=== PATIENT | female | born 1965 | race African-American/Black ===

== ENCOUNTER 2020-05-02 07:16 | Outpatient (REF) | payer OTHER, SELFPAY ==
[2020-05-02 08:12] LABS: COVID-19 Test Negative (Negative)
== END 2020-05-02 07:17 | disposition home or self-care (01) ==
LOC: HO.LAB 07:16
PROVIDERS: Visit Provider Internal Medicine
DX: Z20.828 Contact with and (suspected) exposure to other viral communicable diseases (principal)
CPT/HCPCS: 87635

== ENCOUNTER 2020-11-13 08:04 | Emergency (ER) | payer OTHER, SELFPAY ==
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
[2020-11-13 08:07] VITALS: BP 144/91; PULSE 96; RESP 18; TEMP 36.1; O2SAT 99; BMI 27.3
[2020-11-13] MEDS: Ibuprofen 800 MG TABLET PO (09:19)
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
[2020-11-13 09:31] VITALS: BP 140/97; PULSE 84; RESP 16; O2SAT 98
[2020-11-13 09:40] VITALS: BP 140/97; PULSE 90; RESP 16
== END 2020-11-13 09:55 | disposition home or self-care (01) ==
PROVIDERS: Emergency Provider Emergency Medicine; PCP Internal Medicine
DX: S33.5XXA Sprain of ligaments of lumbar spine, initial encounter (principal); V43.52XA Car driver injured in collision with other type car in traffic accident, initial encounter; Y93.89 Activity, other specified; Y92.414 Local residential or business street as the place of occurrence of the external cause; Y99.9 Unspecified external cause status
CPT/HCPCS: 72100; 99283; 99284

== ENCOUNTER 2021-05-10 10:03 | Outpatient (REF) | payer OTHER, SELFPAY ==
[2021-05-10 12:14] LABS: Influenza A PCR NEGATIVE (Negative); Influenza B PCR NEGATIVE (Negative); Resp Syncy Virus RNA Qual PCR NEGATIVE (Negative); SARS COV2 PCR INHOUSE NEGATIVE (Negative)
== END 2021-05-10 10:04 | disposition home or self-care (01) ==
LOC: HO.LAB 10:03
PROVIDERS: PCP Internal Medicine; Visit Provider Internal Medicine
DX: Z20.822 Contact with and (suspected) exposure to COVID-19 (principal)
CPT/HCPCS: 0241U; 36415

== ENCOUNTER 2021-06-16 07:25 | Outpatient (REF) | payer OTHER, SELFPAY ==
--- NOTE | ~2021-06-16 | XR_ITS ---
EXAMINATION: XR PELVIS XR SACROILIAC JOINTS CLINICAL INFORMATION: Pain of both sacroiliac joints. COMPARISON: None TECHNIQUE: Frontal view of the pelvis. 3 views of the sacroiliac joints. FINDINGS: No fracture or dislocation. The hips are well aligned. Joint spaces are maintained. The sacroiliac joints are symmetric. No abnormal sclerosis. No fusion. The pubic symphysis is well aligned. The pelvic rim is intact. Phleboliths in the pelvis noted. XR/XR sacroiliac joint min 3V IMPRESSION: Unremarkable appearance of the pelvis. The sacroiliac joints are normal in appearance.
--- NOTE | ~2021-06-16 | XR_ITS ---
EXAMINATION: XR PELVIS XR SACROILIAC JOINTS CLINICAL INFORMATION: Pain of both sacroiliac joints. COMPARISON: None TECHNIQUE: Frontal view of the pelvis. 3 views of the sacroiliac joints. FINDINGS: No fracture or dislocation. The hips are well aligned. Joint spaces are maintained. The sacroiliac joints are symmetric. No abnormal sclerosis. No fusion. The pubic symphysis is well aligned. The pelvic rim is intact. Phleboliths in the pelvis noted. XR/XR pelvis 1-2V IMPRESSION: Unremarkable appearance of the pelvis. The sacroiliac joints are normal in appearance.
== END 2021-06-16 07:26 | disposition home or self-care (01) ==
LOC: HO.XRAY 07:25
PROVIDERS: PCP Internal Medicine; Visit Provider Physician Assistant Surgical
DX: M53.3 Sacrococcygeal disorders, not elsewhere classified (principal)
CPT/HCPCS: 72170; 72202

== ENCOUNTER 2021-07-04 07:44 | Outpatient (REF) | payer OTHER, SELFPAY ==
[2021-07-04 08:40] LABS: Influenza A PCR NEGATIVE (Negative); Influenza B PCR NEGATIVE (Negative); Resp Syncy Virus RNA Qual PCR POSITIVE (Negative); SARS COV2 PCR INHOUSE NEGATIVE (Negative)
== END 2021-07-04 07:45 | disposition home or self-care (01) ==
LOC: HO.LAB 07:44
PROVIDERS: PCP Internal Medicine; Visit Provider Internal Medicine
DX: Z20.822 Contact with and (suspected) exposure to COVID-19 (principal)
CPT/HCPCS: 0241U

== ENCOUNTER 2021-12-27 09:47 | Outpatient (REF) | payer OTHER, SELFPAY ==
[2021-12-27 10:05] LABS: MANUAL DIFF FLAG NO
[2021-12-27 10:46] LABS: Basophils Percent Auto 0.5 % (0-2); Eosinophils Absolute Auto 0.1 X10*3/uL (0.0-0.4); Eosinophils Percent Auto 1.6 % (0-4); Hematocrit 36.6 % (37.0-47.0); Hemoglobin 12.5 g/dl (12.0-16.0); Imm Gran Abs Auto 0.02 X10*3/uL (0.00-0.03); Imm Gran Pct Auto 0.5 % (0.0-0.4); Lymphocytes Absolute Auto 2.2 X10*3/uL (1.2-4.9); Lymphocytes Percent Auto 51.4 % (20-40); Mean Corpuscular HGB Conc 34.2 g/dl (31.0-35.0); Mean Corpuscular Hemoglobin 26.7 pg (27.0-33.0); Mean Corpuscular Volume 78.2 fL (80.0-98.0); Mean Platelet Volume 10.3 fL (9.4-12.3); Monocytes Absolute Auto 0.3 X10*3/uL (0.1-1.2); Monocytes Percent Auto 6.5 % (2-11); Neutrophils Absolute Auto 1.7 x10*3/uL (2.0-8.3); Neutrophils Percent Auto 39.5 % (45-73); Platelet Count 400 X10*3/uL (160-400); Red Blood Count 4.68 X10*6/uL (4.20-5.50); Red Cell Distribution Width 15.3 % (11.0-16.0); White Blood Count 4.3 X10*3/uL (4.8-10.8)
[2021-12-27 11:10] LABS: Estimated Average Glucose 108 mg/dL; Hemoglobin A1c % 5.4 %
[2021-12-27 11:16] LABS: Alanine Aminotransferase 27 U/L (0-31); Alkaline Phosphatase 70 U/L (39-117); Anion Gap 10 (12-20); Aspartate Amino Transferase 24 U/L (5-31); Bilirubin Total 0.4 mg/dL (0.0-1.0); Blood Urea Nitrogen 9 mg/dL (9-16); Calcium 8.9 mg/dL (8.4-10.2); Carbon Dioxide 27 mmol/L (22-29); Chloride 107 mmol/L (96-108); Cholesterol 208 mg/dL; Estimated Glomerular Filt Rate > 60; Glucose Random 87 mg/dL (60-115); HDL Cholesterol 54 mg/dL; LDL Cholesterol Calculated 133 mg/dl; Potassium 4.7 mmol/L (3.3-5.1); Sodium 139 mmol/L (135-145); Total Protein 7.4 g/dL (6.5-8.0); Triglycerides 105 mg/dL
[2021-12-27 11:41] LABS: Free T4 (Free Thyroxine) 0.75 ng/dL (0.71-1.85); Thyroid Stimulating Hormone 0.68 uIU/mL (0.32-4.0)
[2021-12-29 06:06] LABS: Vitamin B12 410 pg/mL (200-900)
== END 2021-12-27 09:48 | disposition home or self-care (01) ==
LOC: HO.LAB 09:47
PROVIDERS: PCP Internal Medicine; Visit Provider Internal Medicine
DX: Z00.00 Encounter for general adult medical examination without abnormal findings (principal); E55.9 Vitamin D deficiency, unspecified; F32.9 Major depressive disorder, single episode, unspecified
CPT/HCPCS: 36415; 80053; 80061; 82607; 83036; 84439; 84443; 85025

== ENCOUNTER 2022-05-05 11:33 | Outpatient (REF) | payer OTHER, SELFPAY ==
[2022-05-05 12:06] LABS: COVID-19 Test Negative (Negative); IDNOW Serial# 55D5AD1C
== END 2022-05-05 11:34 | disposition home or self-care (01) ==
LOC: HO.LAB 11:33
PROVIDERS: PCP Internal Medicine; Visit Provider Internal Medicine
DX: Z20.822 Contact with and (suspected) exposure to COVID-19 (principal)
CPT/HCPCS: 87635

== ENCOUNTER 2022-05-21 11:12 | Outpatient (REF) | payer OTHER, SELFPAY ==
--- NOTE | ~2022-05-21 | MM_ITS ---
EXAMINATION: MM SCREENING DIGITAL BREAST TOMOSYNTHESIS, BILATERAL CLINICAL INFORMATION: Screening. Asymptomatic. COMPARISON: Mammography: November 24, 2018 and studies dating back to October 23, 2014 TECHNIQUE: Digital breast tomosynthesis is performed in both the craniocaudal and mediolateral oblique views along with computer-aided detection (CAD). Synthesized 2D images are generated from the tomosynthesis. FINDINGS: The breasts are extremely dense, which lowers the sensitivity of mammography (ACR BI-RADS breast composition Category d). There are no significant masses, abnormal calcifications, or other abnormalities. MM/MM tomosynthesis screening BI IMPRESSION: No significant changes from prior exam. ASSESSMENT: BI-RADS 1: Negative RECOMMENDATION: Routine annual mammography screening. This patient's information was entered into a reminder system with a target due date for their next mammogram.
== END 2022-05-21 11:13 | disposition home or self-care (01) ==
LOC: HO.MAMMO 11:12
PROVIDERS: PCP Internal Medicine; Visit Provider Internal Medicine
DX: Z12.31 Encounter for screening mammogram for malignant neoplasm of breast (principal)
CPT/HCPCS: 77063; 77067

== ENCOUNTER 2022-06-16 12:54 | Outpatient (REF) | payer OTHER, SELFPAY ==
[2022-06-16 14:59] LABS: Influenza A PCR POSITIVE (Negative); Influenza B PCR NEGATIVE (Negative); Resp Syncy Virus RNA Qual PCR NEGATIVE (Negative); SARS COV2 PCR INHOUSE NEGATIVE (Negative)
== END 2022-06-16 12:55 | disposition home or self-care (01) ==
LOC: HO.LAB 12:54
PROVIDERS: PCP Internal Medicine; Visit Provider Internal Medicine
DX: Z20.822 Contact with and (suspected) exposure to COVID-19 (principal)
CPT/HCPCS: 0241U

== ENCOUNTER 2022-07-10 08:10 | Outpatient (REF) | payer OTHER, SELFPAY ==
[2022-07-10 09:01] LABS: Influenza A PCR NEGATIVE (Negative); Influenza B PCR NEGATIVE (Negative); Resp Syncy Virus RNA Qual PCR NEGATIVE (Negative); SARS COV2 PCR INHOUSE NEGATIVE (Negative)
== END 2022-07-10 08:11 | disposition home or self-care (01) ==
LOC: HO.LAB 08:10
PROVIDERS: PCP Internal Medicine; Visit Provider Internal Medicine
DX: Z20.822 Contact with and (suspected) exposure to COVID-19 (principal)
CPT/HCPCS: 0241U

== ENCOUNTER 2022-08-04 15:54 | Outpatient (REF) | payer OTHER, SELFPAY ==
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
== END 2022-08-04 15:55 | disposition home or self-care (01) ==
LOC: HO.HMGCX 15:54
PROVIDERS: PCP Internal Medicine; Visit Provider Internal Medicine
DX: S90.32XA Contusion of left foot, initial encounter (principal)
CPT/HCPCS: 73630

== ENCOUNTER 2022-08-29 09:56 | Outpatient (REF) | payer OTHER, SELFPAY ==
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
[2022-08-29 11:48] LABS: Hematocrit 41.6 % (37.0-47.0); Hemoglobin 13.8 g/dl (12.0-16.0); Mean Corpuscular HGB Conc 33.2 g/dl (31.0-35.0); Mean Corpuscular Hemoglobin 26.2 pg (27.0-33.0); Mean Corpuscular Volume 78.9 fL (80.0-98.0); Mean Platelet Volume 10.7 fL (9.4-12.3); Platelet Count 353 X10*3/uL (160-400); Red Blood Count 5.27 X10*6/uL (4.20-5.50)
[2022-08-29 12:08] LABS: Anion Gap 13 (12-20); Blood Urea Nitrogen 9 mg/dL (9-16); C Reactive Protein 0.11 mg/dL (< or = 0.50); Calcium 9.4 mg/dL (8.4-10.2); Carbon Dioxide 27 mmol/L (22-29); Chloride 111 mmol/L (96-108); Estimated Glomerular Filt Rate > 60; Glucose Random 99 mg/dL (60-115); Potassium 4.8 mmol/L (3.3-5.1); Sodium 146 mmol/L (135-145); Uric Acid 5.4 mg/dL (2.4-5.7)
== END 2022-08-29 09:57 | disposition home or self-care (01) ==
LOC: HO.HMGCX 09:56
PROVIDERS: PCP Internal Medicine; Visit Provider Internal Medicine
DX: S90.32XA Contusion of left foot, initial encounter (principal); S93.402A Sprain of unspecified ligament of left ankle, initial encounter
CPT/HCPCS: 36415; 73600; 73630; 80048; 84550; 85027; 86140

== ENCOUNTER 2023-02-20 08:22 | Outpatient (REF) | payer OTHER, SELFPAY ==
[2023-02-20 08:40] LABS: MANUAL DIFF FLAG NO
[2023-02-20 09:02] LABS: Basophils Percent Auto 0.8 % (0-2); Eosinophils Percent Auto 1.1 % (0-4); Hematocrit 41.4 % (37.0-47.0); Hemoglobin 14.5 g/dl (12.0-16.0); Imm Gran Abs Auto 0.01 X10*3/uL (0.00-0.03); Imm Gran Pct Auto 0.3 % (0.0-0.4); Lymphocytes Absolute Auto 1.8 X10*3/uL (1.2-4.9); Lymphocytes Percent Auto 49.6 % (20-40); Mean Corpuscular Hemoglobin 27.5 pg (27.0-33.0); Mean Corpuscular Volume 78.4 fL (80.0-98.0); Mean Platelet Volume 10.4 fL (9.4-12.3); Monocytes Absolute Auto 0.2 X10*3/uL (0.1-1.2); Monocytes Percent Auto 4.9 % (2-11); Neutrophils Absolute Auto 1.6 x10*3/uL (2.0-8.3); Neutrophils Percent Auto 43.3 % (45-73); Platelet Count 363 X10*3/uL (160-400); Red Blood Count 5.28 X10*6/uL (4.20-5.50); Red Cell Distribution Width 15.2 % (11.0-16.0); White Blood Count 3.7 X10*3/uL (4.8-10.8)
[2023-02-20 09:12] LABS: Estimated Average Glucose 103 mg/dL; Hemoglobin A1c % 5.2 %
[2023-02-20 09:30] LABS: Alanine Aminotransferase 24 U/L (0-31); Albumin Level 4.2 g/dL (3.5-5.0); Alkaline Phosphatase 82 U/L (39-117); Anion Gap 11 (12-20); Aspartate Amino Transferase 24 U/L (5-31); Bilirubin Total 0.4 mg/dL (0.0-1.0); Blood Urea Nitrogen 9 mg/dL (9-16); Calcium 9.3 mg/dL (8.4-10.2); Carbon Dioxide 28 mmol/L (22-29); Chloride 108 mmol/L (96-108); Cholesterol 180 mg/dL; Estimated Glomerular Filt Rate > 60; Glucose Random 85 mg/dL (60-115); HDL Cholesterol 55 mg/dL; LDL Cholesterol Calculated 108 mg/dl; Potassium 4.6 mmol/L (3.3-5.1); Sodium 142 mmol/L (135-145); Total Protein 7.7 g/dL (6.5-8.0); Triglycerides 87 mg/dL
[2023-02-20 09:38] LABS: TSH reflex Free T4 0.91 uIU/mL (0.32-4.0); Thyroid Stimulating Hormone 0.91 uIU/mL (0.32-4.0)
[2023-02-20 09:44] LABS: Vitamin B12 424 pg/mL (200-900)
== END 2023-02-20 08:23 | disposition home or self-care (01) ==
LOC: HO.LAB 08:22
PROVIDERS: PCP Internal Medicine; Visit Provider Internal Medicine
DX: Z00.00 Encounter for general adult medical examination without abnormal findings (principal); E66.9 Obesity, unspecified; E55.9 Vitamin D deficiency, unspecified
CPT/HCPCS: 36415; 80053; 80061; 82607; 83036; 84443; 85025

== ENCOUNTER 2023-03-06 17:57 | Emergency (ER) | payer OTHER, SELFPAY ==
[2023-03-06 18:04] VITALS: BP 157/104; PULSE 106; RESP 18; TEMP 37.2; O2SAT 97; BMI 30.5
[2023-03-06 18:20] LABS: MANUAL DIFF FLAG NO
[2023-03-06] MEDS: ondansetron HCL 4 MG/2 ML VIAL IVPUSH (18:25)
[2023-03-06] MEDS: 0.9 % Sodium Chloride 1,000 ML 999 ML IV (18:25)
[2023-03-06 18:26] LABS: Glucose, Whole Blood 74 mg/dL (60-115)
[2023-03-06 18:26] LABS: Basophils Percent Auto 0.3 % (0-2); Hematocrit 42.6 % (37.0-47.0); Hemoglobin 14.8 g/dl (12.0-16.0); Imm Gran Abs Auto 0.02 X10*3/uL (0.00-0.03); Imm Gran Pct Auto 0.3 % (0.0-0.4); Lymphocytes Absolute Auto 1.3 X10*3/uL (1.2-4.9); Lymphocytes Percent Auto 19.6 % (20-40); Mean Corpuscular HGB Conc 34.7 g/dl (31.0-35.0); Mean Corpuscular Hemoglobin 27.1 pg (27.0-33.0); Mean Corpuscular Volume 77.9 fL (80.0-98.0); Mean Platelet Volume 9.7 fL (9.4-12.3); Monocytes Absolute Auto 0.2 X10*3/uL (0.1-1.2); Monocytes Percent Auto 3.2 % (2-11); Neutrophils Absolute Auto 5.2 x10*3/uL (2.0-8.3); Neutrophils Percent Auto 76.6 % (45-73); Platelet Count 352 X10*3/uL (160-400); Red Blood Count 5.47 X10*6/uL (4.20-5.50); Red Cell Distribution Width 15.1 % (11.0-16.0); White Blood Count 6.8 X10*3/uL (4.8-10.8)
[2023-03-06 18:30] VITALS: PULSE 98
--- NOTE | 2023-03-06 18:31 | PC.NURSE ---
pt a&ox3. respirations even and unlabored. pt reports nausea and vomiting since last night with no relief. pt reports no diarrhea at this time. pt denies chest pain. abdomen soft non tender but pt is reporting epigastric pain. hypoactive bowel sounds in all 4 quadrants. pt reports increasing her dose of wegovy from 0.5mg to 1.7mg on 02/25/2023 which the pt thinks may be causing the n/v.
[2023-03-06 18:37] LABS: COVID-19 Test Negative (Negative); IDNOW Serial# 08D9AD1C; IDNOW Serial# BCCEAD1C; Influenza A Negative (Negative); Influenza B2 Negative (Negative)
[2023-03-06 18:45] LABS: Alanine Aminotransferase 17 U/L (0-31); Albumin Level 4.4 g/dL (3.5-5.0); Alkaline Phosphatase 80 U/L (39-117); Anion Gap 11 (12-20); Aspartate Amino Transferase 22 U/L (5-31); Bilirubin Total 0.4 mg/dL (0.0-1.0); Blood Urea Nitrogen 9 mg/dL (9-16); Calcium 9.5 mg/dL (8.4-10.2); Carbon Dioxide 26 mmol/L (22-29); Chloride 107 mmol/L (96-108); Creatinine Clr Calc Pharmacy 92.1; Estimated Glomerular Filt Rate > 60; Glucose Random 71 mg/dL (60-115); Lipase 31 U/L (8-78); Sodium 140 mmol/L (135-145); Total Protein 8.3 g/dL (6.5-8.0)
--- NOTE | 2023-03-06 19:10 | ED_ITS ---
HPI - Nausea/Vomiting/Diarrhea General Chief complaint: Nausea/Vomiting/Diarrhea Stated complaint: Nausea/Vomiting Time Seen by Provider: 03/06/23 18:29 Source: patient Mode of arrival: ambulatory Limitations: no limitations History of Present Illness HPI Narrative: Patient comes to the emergency room complaining of nausea and vomiting since last night. Patient states that yesterday in the evening, she started a new dose of We Related Data Home Medications Medication Instructions Recorded Confirmed escitalopram oxalate 20 mg tablet 20 mg PO DAILY 08/04/22 pregabalin 75 mg capsule 150 mg PO BID 08/04/22 tramadol 50 mg tablet 50 mg PO DAILY PRN 08/04/22 cholecalciferol (vitamin D3) 125 125 mcg PO DAILY 08/29/22 mcg (5,000 unit) capsule Previous Rx's Medication Instructions Recorded acetaminophen 500 mg tablet 500 mg PO Q6H PRN pain or fever 11/13/20 (Tylenol Extra Strength) #20 tabs prednisone 20 mg tablet 60 mg PO DAILY #9 tabs 08/29/22 ondansetron 4 mg disintegrating 4 mg PO Q6H PRN nausea and 03/06/23 tablet vomiting #14 tabs Allergies Allergy/AdvReac Type Severity Reaction Status Date / Time No Known Allergies [NKA] Allergy Verified 03/06/23 18:08 Review of Systems Review of Systems: Constitutional : No Weight loss, No Fever, No Chills, No Night Sweats, No Fatigue, No Malaise ENT/Mouth : No Hearing loss, No Ear Pain, No Nasal Congestion, No Sinus Pain, No Hoarseness, No sore throat, No Rhinorrhea, No Swallowing Difficulty Eyes: No Eye Pain, No Swelling, No Redness, No Foreign Body, No Discharge, No Vision Changes Cardiovascular : No Chest Pain, No SOB, No Dyspnea on Exertion, No Orthopnea, No Edema, No Palpitations Respiratory : No Cough, No Sputum, No Wheezing, No Smoke Exposure, No Dyspnea Gastrointestinal : Complaining of nausea and vomiting, No Diarrhea, No Constipation, No abdominal Pain, No Hematochezia, No Melena Genitourinary : no irregular bleeding, No Dysuria, No Urinary Frequency, No Hematuria, No Urinary Incontinence, No Urgency, No Flank Pain, No Urinary Flow Changes, No Hesitancy Musculoskeletal : No joint pain, No Myalgias, No Joint Swelling Skin : No Skin Lesions, No rash Neuro : No Weakness, No Numbness, No Paresthesias, No Loss of Consciousness, No Dizziness, No Headache Psych : No Anxiety/Panic, No Depression, No SI/HI/AH/VH, No Social Issues, Heme/Lymph: No Bruising, No Bleeding,No Lymphadenopathy Endocrine : No Polyuria, No Polydipsia, No Temperature Intolerance [facility] Past Medical History Medical History Depression History of sinus problem Scoliosis Surgical History Previous back surgery Social History Social History Alcohol intake: never Smoked in Last 30 Days: No Use of substances other than those prescribed or required for medical reasons: No Advance Directives: No Advance Directives Information Provided: Yes Physical Exam Vital Signs: Vital Signs: Last Vital Signs Temp 98.7 F 03/06/23 20:00 Pulse 91 03/06/23 20:00 Resp 25 H 03/06/23 20:00 BP 145/94 H 03/06/23 20:00 Pulse Ox 98 03/06/23 20:00 O2 Del Method Room Air 03/06/23 20:00 BMI result Body Mass Index 30.5 Const: Other: Appearance: Alert. Oriented X3. No acute distress. Eyes: Pupils equal, round and reactive to light. ENT: Pharynx normal. Neck: Normal inspection. Neck supple. No lymph nodes noted. No crepitus CVS: Normal heart rate and rhythm. Pulses normal. Normal S1 and S2 Respiratory: No respiratory distress. Breath sounds normal. No Wheezing. No rales Abdomen: Soft mild discomfort to palpation in epigastric area, No rigidity. No distention. Skin: Skin warm and dry. Normal skin color. Normal skin turgor. Extremities: No lower extremity edema. No Lacerations. No Rash Neuro: Oriented X 3. No motor deficit. No sensory deficit. Moving all extremities. No slurred speech. CN 2 through 12 grossly intact Psych: calm, cooperative, normal affect Medications Administered Discontinued Medications Generic Name Dose Route Start Last Admin Trade Name Freq PRN Reason Stop Dose Admin Sodium Chloride 1,000 mls @ 999 mls/hr 03/06/23 18:15 03/06/23 19:26 Ns IV 03/06/23 19:15 Infused .Q1H1M ADITI Infusion Ondansetron HCl 4 mg 03/06/23 18:18 03/06/23 18:25 Ondansetron Hcl 4 Mg/2 Ml Vial IVPUSH 03/06/23 18:19 4 mg ONCE ONE Administration Medical Decision Making Medical Decision Making [facility] Narrative: -my interpretation of labs: White blood cell count normal, chemistry within n ormal limits, LFTs normal, lipase normal -is possible that patient may have had side effect to her new dose of Wegoby, versus eating food that may have gone the patient is sick. -patient was given IV fluids and Zofran. Patient was p.o. challenged patient feels better, abdominal pain improved patient will be going home shortly. Differential Diagnosis Differential Diagnoses: The differential diagnosis associated with the presentation includes (Medication side effect, gastroenteritis, peptic ulcer) Admission/Observation Consideration of admission/observation: Escalation of care including admission/observation considered (And patient came in, patient complaining of abdominal pain, nausea vomiting, possible dehydration, admission was considered) Lab Data [facility] Lab Attestation statement: I reviewed the patient's lab results. 03/06/23 18:16 03/06/23 18:16 Labs: Lab Results 03/06/23 03/06/23 03/06/23 Range/Units 18:16 18:16 18:16 WBC 6.8 (4.8-10.8) X10*3/uL RBC 5.47 (4.20-5.50) X10*6/uL Hgb 14.8 (12.0-16.0) g/dl Hct 42.6 (37.0-47.0) % MCV 77.9 L (80.0-98.0) fL MCH 27.1 (27.0-33.0) pg MCHC 34.7 (31.0-35.0) g/dl RDW 15.1 (11.0-16.0) % Plt Count 352 (160-400) X10*3/uL MPV 9.7 (9.4-12.3) fL Immature Gran % (Auto) 0.3 (0.0-0.4) % Neut % (Auto) 76.6 H (45-73) % Lymph % (Auto) 19.6 L (20-40) % Williamson % (Auto) 3.2 (2-11) % Eos % (Auto) 0.0 (0-4) % Baso % (Auto) 0.3 (0-2) % Lymph # (Auto) 1.3 (1.2-4.9) X10*3/uL Williamson # (Auto) 0.2 (0.1-1.2) X10*3/uL Eos # (Auto) 0.0 (0.0-0.4) X10*3/uL Baso # (Auto) 0.0 (0.0-0.2) X10*3/uL Abs Immat Gran (auto) 0.02 (0.00-0.03) X10*3/uL Absolute Neuts (auto) 5.2 (2.0-8.3) x10*3/uL Absolute Nucleated RBC 0.000 (0.0-0.012) X10*3/uL Nucleated RBC % (auto) 0.0 (0.0-0.2) /100WBC Sodium 140 (135-145) mmol/L Potassium 4.0 (3.3-5.1) mmol/L Chloride 107 (96-108) mmol/L Carbon Dioxide 26 (22-29) mmol/L Anion Gap 11 L (12-20) BUN 9 (9-16) mg/dL Creatinine 0.84 (0.5-1.4) mg/dL Estim Creat Clear Calc 92.1 Estimated GFR > 60 POC Glucose (60-115) mg/dL Random Glucose 71 (60-115) mg/dL Calcium 9.5 (8.4-10.2) mg/dL Total Bilirubin 0.4 (0.0-1.0) mg/dL AST 22 (5-31) U/L ALT 17 (0-31) U/L Alkaline Phosphatase 80 (39-117) U/L Total Protein 8.3 H (6.5-8.0) g/dL Albumin 4.4 (3.5-5.0) g/dL Lipase 31 (8-78) U/L COVID-19 (CELENA) (Negative) COVID-19 Clin Com Influenza Type A (TASHA) Negative (Negative) Influenza Type B (TASHA) Negative (Negative) Influenza A & B Note See Note 03/06/23 03/06/23 Range/Units 18:16 18:22 WBC (4.8-10.8) X10*3/uL RBC (4.20-5.50) X10*6/uL Hgb (12.0-16.0) g/dl Hct (37.0-47.0) % MCV (80.0-98.0) fL MCH (27.0-33.0) pg MCHC (31.0-35.0) g/dl RDW (11.0-16.0) % Plt Count (160-400) X10*3/uL MPV (9.4-12.3) fL Immature Gran % (Auto) (0.0-0.4) % Neut % (Auto) (45-73) % Lymph % (Auto) (20-40) % Williamson % (Auto) (2-11) % Eos % (Auto) (0-4) % Baso % (Auto) (0-2) % Lymph # (Auto) (1.2-4.9) X10*3/uL Williamson # (Auto) (0.1-1.2) X10*3/uL Eos # (Auto) (0.0-0.4) X10*3/uL Baso # (Auto) (0.0-0.2) X10*3/uL Abs Immat Gran (auto) (0.00-0.03) X10*3/uL Absolute Neuts (auto) (2.0-8.3) x10*3/uL Absolute Nucleated RBC (0.0-0.012) X10*3/uL Nucleated RBC % (auto) (0.0-0.2) /100WBC Sodium (135-145) mmol/L Potassium (3.3-5.1) mmol/L Chloride (96-108) mmol/L Carbon Dioxide (22-29) mmol/L Anion Gap (12-20) BUN (9-16) mg/dL Creatinine (0.5-1.4) mg/dL Estim Creat Clear Calc Estimated GFR POC Glucose 74 (60-115) mg/dL Random Glucose (60-115) mg/dL Calcium (8.4-10.2) mg/dL Total Bilirubin (0.0-1.0) mg/dL AST (5-31) U/L ALT (0-31) U/L Alkaline Phosphatase (39-117) U/L Total Protein (6.5-8.0) g/dL Albumin (3.5-5.0) g/dL Lipase (8-78) U/L COVID-19 (CELENA) Negative (Negative) COVID-19 Clin Com See Note Influenza Type A (TASHA) (Negative) Influenza Type B (TASHA) (Negative) Influenza A & B Note Tests considered The following testing was considered but not selected: I considered a CT scan of abdomen/pelvis. However, the physical exam of the abdomen was fairly benign. After IV hydration and fluids, patient started feeling much better. White blood cell count and chemistries do not show significant abnormality. Imaging not indicated at this time. Discharge Plan Discharge Clinical Impression: Nausea & vomiting Patient Disposition: Home, Self-Care Instructions: Acute Nausea and Vomiting (ED) Additional Instructions: Please follow-up with your primary care physician tomorrow. If you have any worsening or new symptoms, please return to the emergency room or call 911 Prescriptions: New ondansetron 4 mg tablet,disintegrating 4 mg PO Q6H PRN (Reason: nausea and vomiting) Qty: 14 0RF No Action acetaminophen [Tylenol Extra Strength] 500 mg tablet 500 mg PO Q6H PRN (Reason: pain or fever) Qty: 20 0RF tramadol 50 mg tablet 50 mg PO DAILY PRN pregabalin 75 mg capsule 150 mg PO BID escitalopram oxalate 20 mg tablet 20 mg PO DAILY cholecalciferol (vitamin D3) 125 mcg (5,000 unit) capsule 125 mcg PO DAILY prednisone 20 mg tablet 60 mg PO DAILY Qty: 9 0RF
[2023-03-06 20:00] VITALS: BP 145/94; PULSE 91; RESP 25; TEMP 37.1; O2SAT 98
--- NOTE | 2023-03-06 20:26 | PC.NURSE ---
Pt tolerated a cup of cranberry juice well, with no vomiting, states she is burpy
== END 2023-03-06 21:01 | disposition home or self-care (01) ==
PROVIDERS: Emergency Provider Emergency Medicine
DX: R11.2 Nausea with vomiting, unspecified (principal); Z20.822 Contact with and (suspected) exposure to COVID-19; R10.13 Epigastric pain; Z79.899 Other long term (current) drug therapy
CPT/HCPCS: 80053; 82947; 83690; 85025; 87502; 87635; 96361; 96374; 99284; J2405

== ENCOUNTER 2023-09-06 08:15 | Emergency (ER) | payer OTHER, SELFPAY ==
[2023-09-06 08:24] VITALS: BP 131/94; PULSE 109; RESP 20; TEMP 36.6; O2SAT 99; BMI 23.9
--- NOTE | 2023-09-06 08:31 | ED_ITS ---
HPI - Nausea/Vomiting/Diarrhea General Chief complaint: Abdominal Pain Stated complaint: Nausea, vomiting Time Seen by Provider: 09/06/23 08:25 Source: patient Mode of arrival: ambulatory Limitations: no limitations History of Present Illness HPI Narrative: 58 years old female presented with chief complaint of nausea and vomiting. She has been recently diagnosed with H pylori, she has history of abdominal pain since May. She denies any fever diarrhea MD elicited complaint: nausea and vomiting Onset (ago): hour(s) (6) Associated nausea: Yes Associated abdominal pain: No Location of pain: none Quality: cramping Exacerbating factors: none Relieving factors: none Related Data Home Medications Medication Instructions Recorded Confirmed escitalopram oxalate 20 mg tablet 20 mg PO DAILY 08/04/22 pregabalin 75 mg capsule 150 mg PO BID 08/04/22 tramadol 50 mg tablet 50 mg PO DAILY PRN 08/04/22 cholecalciferol (vitamin D3) 125 125 mcg PO DAILY 08/29/22 mcg (5,000 unit) capsule Previous Rx's Medication Instructions Recorded acetaminophen 500 mg tablet 500 mg PO Q6H PRN pain or fever 11/13/20 (Tylenol Extra Strength) #20 tabs prednisone 20 mg tablet 60 mg (3 x 20 mg) PO DAILY #9 tabs 08/29/22 ondansetron 4 mg disintegrating 4 mg PO Q6H PRN nausea and 03/06/23 tablet vomiting #14 tabs amoxicillin 875 mg-potassium 1 tab PO BID 10 days #20 tabs 05/31/23 clavulanate 125 mg tablet fluconazole 150 mg tablet 150 mg PO Q3D 2 doses #2 tabs 05/31/23 omeprazole 20 mg capsule,delayed 20 mg PO DAILY #30 caps 08/09/23 release metoclopramide HCl 10 mg tablet 10 mg PO Q6H PRN nausea and 09/06/23 (Reglan) vomiting #15 tabs Allergies Allergy/AdvReac Type Severity Reaction Status Date / Time ondansetron [From Zofran] Allergy Unknown Verified 09/06/23 08:31 Review of Systems 2 Constitutional: Constitutional: Reports no additional constitutional complaints ENT: Reports system reviewed and no additional complaints, except as documented Cardiovascular: Cardiovascular: Reports no additional cardiovascular complaints Respiratory: Respiratory: Reports no additional respiratory complaints Gastrointestinal: Gastrointestinal: Reports nausea PMFSH Past Medical History Attestation statement: The following information was validated with the patient. PMFSH Narrative: H Pylori,depression Medical History History of sinus problem Depression Scoliosis Surgical History Previous back surgery Social History Social History Alcohol intake: never Smoked in Last 30 Days: No Use of substances other than those prescribed or required for medical reasons: No Advance Directives: No Advance Directives Information Provided: No Patient : No Physical Exam 2 Vital Signs: Vital Signs: Last Vital Signs Temp 97.8 F 09/06/23 08:24 Pulse 109 H 09/06/23 08:24 Resp 18 09/06/23 08:52 BP 131/94 H 09/06/23 08:24 Pulse Ox 99 09/06/23 08:24 O2 Del Method Room Air 09/06/23 08:24 BMI result Body Mass Index 23.9 Const: General: cooperative Nutritional Appearance: well nourished O rientation/consciousness: patient oriented x3 HEENT: Head: Yes normal to inspection General nose exam: Normal external nose present Face and sinus: Yes normal facial exam Mouth: Normal oral and palatal mucosa present Throat: Yes posterior oropharynx normal Neck: Neck: Yes normal visual inspection Thyroid: Thyroid normal Chest: Chest palpation & inspection: normal inspection of the chest Resp: Effort & Inspection: normal respiratory effort Auscultation: clear to auscultation bilaterally Cardio: Jugular venous distension: no JVD Rate: regular rate Rhythm: r egular rhythm GI: Inspection: Yes normal to inspection Palpation (GI): Soft to palpation, not firm and nontender : General: Yes no CVA tenderness Back/Spine/Pelvis: Back: no CVA tenderness Skin: General skin exam: no rashes or lesions noted and elasticity normal L esions: no lesions Rashes: no rashes Neuro: General: patient oriented x3 Cranial nerves: Yes CN's II-XII intact bilaterally Course Reevaluation(s) Reevaluation #1: Feels better anticipate discharge labs are within normal Time: 10:30 Medications Administered Discontinued Medications Generic Name Dose Route Start Last Admin Trade Name Freq PRN Reason Stop Dose Admin Diphenhydramine HCl 12.5 mg 09/06/23 08:30 09/06/23 08:47 Diphenhydramine Hcl 50 Mg/Ml Vial IVPUSH 09/06/23 08:31 12.5 mg ONCE ONE Administration Sodium Chloride 1,000 mls @ 999 mls/hr 09/06/23 08:30 09/06/23 08:47 Ns IVCONT 09/06/23 09:30 999 mls/hr .Q1H1M ADITI Administration Metoclopramide HCl 10 mg 09/06/23 08:30 09/06/23 08:47 Metoclopramide Hcl 10 Mg/2 Ml Vial IVPUSH 09/06/23 08:31 10 mg ONCE ONE Administration Medical Decision Making Medical Decision Making MDM Narrative: Patient presented with nausea vomiting will obtain labs insert an IV administer fluid antiemetic Differential Diagnosis Differential Diagnoses: The differential diagnosis associated with the presentation includes Gastritis/gastroenteritis Admission/Observation Consideration of admission/observation: Escalation of care including admission/observation considered Lab Data [facility] Lab Attestation statement: I reviewed the patient's lab results. 09/06/23 08:40 09/06/23 08:40 Labs: Lab Results 09/06/23 Range/Units 08:40 WBC 3.2 L (4.8-10.8) X10*3/uL RBC 5.36 (4.20-5.50) X10*6/uL Hgb 14.9 (12.0-16.0) g/dl Hct 41.9 (37.0-47.0) % MCV 78.2 L (80.0-98.0) fL MCH 27.8 (27.0-33.0) pg MCHC 35.6 H (31.0-35.0) g/dl RDW 14.3 (11.0-16.0) % Plt Count 340 (160-400) X10*3/uL MPV 9.9 (9.4-12.3) fL Immature Gran % (Auto) 0.0 (0.0-0.4) % Neut % (Auto) 44.8 L (45-73) % Lymph % (Auto) 45.7 H (20-40) % Whitley % (Auto) 7.1 (2-11) % Eos % (Auto) 1.5 (0-4) % Baso % (Auto) 0.9 (0-2) % Lymph # (Auto) 1.5 (1.2-4.9) X10*3/uL Whitley # (Auto) 0.2 (0.1-1.2) X10*3/uL Eos # (Auto) 0.1 (0.0-0.4) X10*3/uL Baso # (Auto) 0.0 (0.0-0.2) X10*3/uL Abs Immat Gran (auto) 0.00 (0.00-0.03) X10*3/uL Absolute Neuts (auto) 1.5 L (2.0-8.3) x10*3/uL Absolute Nucleated RBC 0.000 (0.0-0.012) X10*3/uL Nucleated RBC % (auto) 0.0 (0.0-0.2) /100WBC Sodium 139 (135-145) mmol/L Potassium 4.0 (3.3-5.1) mmol/L Chloride 105 (96-108) mmol/L Carbon Dioxide 27 (22-29) mmol/L Anion Gap 11 L (12-20) BUN 7 L (9-16) mg/dL Creatinine 1.06 (0.5-1.4) mg/dL Estim Creat Clear Calc 61.9 Estimated GFR 54 Random Glucose 96 (60-115) mg/dL Calcium 9.7 (8.4-10.2) mg/dL Total Bilirubin 0.5 (0.0-1.0) mg/dL AST 19 (5-31) U/L ALT 16 (0-31) U/L Alkaline Phosphatase 60 (39-117) U/L Total Protein 7.8 (6.5-8.0) g/dL Albumin 4.3 (3.5-5.0) g/dL Lipase 40 (8-78) U/L Discharge Plan Discharge Clinical Impression: Vomiting Qualifiers: Vomiting type: unspecified Nausea presence: with nausea Qualified Code(s): R 11.2 - Nausea with vomiting, unspecified Patient Disposition: Home, Self-Care Instructions: Acute Nausea and Vomiting (ED) Additional Instructions: Follow-up with your primary care physician return if you worse Prescriptions: New metoclopramide HCl [Reglan] 10 mg tablet 10 mg PO Q6H PRN (Reason: nausea and vomiting) Qty: 15 0RF No Action acetaminophen [Tylenol Extra Strength] 500 mg tablet 500 mg PO Q6H PRN (Reason: pain or fever) Qty: 20 0RF ondansetron 4 mg tablet,disintegrating 4 mg PO Q6H PRN (Reason: nausea and vomiting) Qty: 14 0RF fluconazole 150 mg tablet 150 mg PO Q3D Qty: 2 0RF amoxicillin-pot clavulanate 875-125 mg tablet 1 tab PO BID 10 Days Qty: 20 0RF omeprazole 20 mg capsule,delayed release(DR/EC) 20 mg PO DAILY Qty: 30 1RF tramadol 50 mg tablet 50 mg PO DAILY PRN pregabalin 75 mg capsule 150 mg PO BID escitalopram oxalate 20 mg tablet 20 mg PO DAILY cholecalciferol (vitamin D3) 125 mcg (5,000 unit) capsule 125 mcg PO DAILY prednisone 20 mg tablet 60 mg PO DAILY Qty: 9 0RF Referrals: Tiera Stein MD [Primary Care Provider] - 1 day Stand Alone Forms: Work/School Release Interventions: ED Discharge Assessment Last Done: 09/06/23 10:39 Discharge Date/Time: 09/06/23 10:40
[2023-09-06 08:44] LABS: MANUAL DIFF FLAG NO
[2023-09-06] MEDS: 0.9 % Sodium Chloride 1,000 ML 999 ML IVCONT (08:47)
[2023-09-06] MEDS: Metoclopramide HCl 10 MG/2 ML VIAL IVPUSH (08:47)
[2023-09-06] MEDS: diphenhydrAMINE HCL 50 MG/ML VIAL 12.5 MG IVPUSH (08:47)
[2023-09-06 08:48] LABS: Basophils Percent Auto 0.9 % (0-2); Eosinophils Absolute Auto 0.1 X10*3/uL (0.0-0.4); Eosinophils Percent Auto 1.5 % (0-4); Hematocrit 41.9 % (37.0-47.0); Hemoglobin 14.9 g/dl (12.0-16.0); Lymphocytes Absolute Auto 1.5 X10*3/uL (1.2-4.9); Lymphocytes Percent Auto 45.7 % (20-40); Mean Corpuscular HGB Conc 35.6 g/dl (31.0-35.0); Mean Corpuscular Hemoglobin 27.8 pg (27.0-33.0); Mean Corpuscular Volume 78.2 fL (80.0-98.0); Mean Platelet Volume 9.9 fL (9.4-12.3); Monocytes Absolute Auto 0.2 X10*3/uL (0.1-1.2); Monocytes Percent Auto 7.1 % (2-11); Neutrophils Absolute Auto 1.5 x10*3/uL (2.0-8.3); Neutrophils Percent Auto 44.8 % (45-73); Platelet Count 340 X10*3/uL (160-400); Red Blood Count 5.36 X10*6/uL (4.20-5.50); Red Cell Distribution Width 14.3 % (11.0-16.0); White Blood Count 3.2 X10*3/uL (4.8-10.8)
[2023-09-06 08:52] VITALS: RESP 18
[2023-09-06 09:02] LABS: Alanine Aminotransferase 16 U/L (0-31); Albumin Level 4.3 g/dL (3.5-5.0); Alkaline Phosphatase 60 U/L (39-117); Anion Gap 11 (12-20); Aspartate Amino Transferase 19 U/L (5-31); Bilirubin Total 0.5 mg/dL (0.0-1.0); Blood Urea Nitrogen 7 mg/dL (9-16); Calcium 9.7 mg/dL (8.4-10.2); Carbon Dioxide 27 mmol/L (22-29); Chloride 105 mmol/L (96-108); Creatinine Clr Calc Pharmacy 61.9; Estimated Glomerular Filt Rate 54; Glucose Random 96 mg/dL (60-115); Lipase 40 U/L (8-78); Sodium 139 mmol/L (135-145); Total Protein 7.8 g/dL (6.5-8.0)
== END 2023-09-06 10:40 | disposition home or self-care (01) ==
PROVIDERS: Emergency Provider Emergency Medicine; PCP Internal Medicine
DX: R11.2 Nausea with vomiting, unspecified (principal); B96.81 Helicobacter pylori [H. pylori] as the cause of diseases classified elsewhere
CPT/HCPCS: 36415; 80053; 83690; 85025; 96374; 96375; 99284; J1200; J2765

== ENCOUNTER 2023-10-05 09:08 | Outpatient (REF) | payer OTHER, SELFPAY ==
[2023-10-05 09:32] LABS: IDNOW Serial# 08D9AD1C; Strep A Nucleic Acid Negative (Negative)
== END 2023-10-05 09:09 | disposition home or self-care (01) ==
LOC: HO.LAB 09:08
PROVIDERS: Visit Provider Physician Assistant
DX: J02.9 Acute pharyngitis, unspecified (principal)
CPT/HCPCS: 87651

== ENCOUNTER 2023-10-24 11:18 | Outpatient (REF) | payer OTHER, SELFPAY ==
[2023-10-26 08:46] LABS: HIV AB/AG Nonreactive (Nonreactive); HIV Num 1 0.05 S/CO (0.00-0.99)
== END 2023-10-24 11:19 | disposition home or self-care (01) ==
LOC: HO.LAB 11:18
PROVIDERS: PCP Internal Medicine; Visit Provider Nurse Practitioner Women's Health
DX: Z11.4 Encounter for screening for human immunodeficiency virus [HIV] (principal)
CPT/HCPCS: 36415; 87389

== ENCOUNTER 2023-11-09 09:11 | Outpatient (REF) | payer OTHER, SELFPAY | END 2023-11-09 09:12 | disposition home or self-care (01) | LOC: HO.MAMMO 09:11 | PROVIDERS: Absent Provider Nurse Practitioner Women's Health; PCP Internal Medicine; Visit Provider Internal Medicine | DX: Z12.31 Encounter for screening mammogram for malignant neoplasm of breast (principal) | CPT/HCPCS: 77063; 77067 ==

== ENCOUNTER → 2023-11-09 09:15 | Outpatient (BNV) | payer OTHER, SELFPAY | PROVIDERS: Absent Provider Nurse Practitioner Women's Health; PCP Internal Medicine; Visit Provider Radiology Diagnostic Radiology | DX: Z12.31 Encounter for screening mammogram for malignant neoplasm of breast (principal) | CPT/HCPCS: 77063; 77067 ==

== ENCOUNTER 2024-03-21 11:00 | Outpatient (RCR) | payer OTHER, SELFPAY | END 2024-03-21 11:57 | disposition home or self-care (01) | LOC: HO.PTCHIC 11:00 | PROVIDERS: PCP Internal Medicine; Visit Provider Physician Assistant | DX: M24.851 Other specific joint derangements of right hip, not elsewhere classified (principal) | CPT/HCPCS: 97110; 97161 ==

== ENCOUNTER 2024-07-11 15:00 | Outpatient (AMB) | payer OTHER, SELFPAY ==
--- NOTE | 2024-07-11 15:21 | MHC.OFFWIV ---
Intake Vital Signs 07/11/24 15:24 Weight 217 lb BP 126/88 Blood Pressure Location Rt brachial Position Sitting Pulse 78 Pulse Source Pulse Oximeter Temp 98.0 F Temp Source Oral Pulse Oximetry (%) 98 Oxygen Delivery Method Room Air Intake Visit Reasons: EP-sinusitis Intake Note: Patient here for nasal congestion, fatigued which has been present since Wednesday. Patient Tobacco Use Status: Never used Tobacco Allergies ondansetron [From Zofran] Allergy (Verified 07/11/24 15:25) Unknown HPI HPI Comments History of Present Illness Details This is a 59-year-old female with a past medical history of chronic back pain and depression presenting for evaluation of fatigue, sinus congestion and rhinorrhea that she has had for the past 4 days. Patient denies having any otalgia, pharyngitis, cough, chest pain, dyspnea, nausea, vomiting or diarrhea. [facility] Medical History History of sinus problem Depression Scoliosis Surgical History Previous back surgery Social History Alcohol intake: never Patient Tobacco Use Status: Never used Tobacco Review of Systems Const All systems reviewed & are unremarkable except as noted in HPI and below Denies chills, Reports fatigue and Denies fever(s) Eyes Reports no additional complaints ENT Reports no additional complaints, Reports nasal discharge and Reports sinus pressure Card Denies chest pain Resp Denies cough and Denies wheezing GI Reports no additional complaints Reports no additional complaints Musc Reports no additional complaints Skin/Breast Reports system reviewed and no additional complaints, except as documented Neuro Reports no additional complaints Psych Reports no additional complaints Endo Reports no additional complaints and Reports fatigue Derrell/Lymph Reports no additional complaints Aller/Immun Reports no additional complaints and Denies wheezing Physical Exam Const General: cooperative, comfortable, no acute distress, alert, awake and tired appearing; No lethargic Nutritional Appearance: average body habitus Orientation/consciousness: patient oriented x3 and No lethargic Limitations: no limitations HEENT Head: Yes normal to inspection and Yes normocephalic Ears: hearing grossly normal bilaterally, external ears normal, right TM abnormal (bulging, mild erythema), TM normal on the left and EAC's normal General nose exam: Normal external nose present Face and sinus: No normal facial exam and Yes sinus tenderness Mouth: moist mucous membranes Throat: No posterior oropharynx normal (Mild erythema of the posterior oropharynx without edema or exudates) and Yes postnasal drainage Eyes Alignment and Position: alignment normal Periorbital: periorbital findings normal Eyelids: Yes eyelids normal Conjunctivae: conjunctival abnormal (injected bilaterally) Sclerae: sclerae normal EOM: EOMs intact bilaterally Resp Effort & Inspection: normal respiratory effort, able to speak in complete sentences, no audible wheezes, no cough and no respiratory distress Auscultation: clear to auscultation bilaterally Cardio Rate: regular rate Rhythm: regular rhythm Skin General skin exam: no rashes or lesions noted Neuro General: patient oriented x3 Psych Appearance: grossly normal Mental Status: mental status grossly normal Insight: Good insight present (Psych) Judgement: Good judgement present (Psych) Assessment & Plan Assessment & Plan (1) Acute bacterial sinusitis: Comment: Patient's symptoms are primarily viral in nature, however given the erythema noted of the left ear and sinus tenderness patient will be given an antibiotic for ongoing management. Code(s): J01.90 - Acute sinusitis, unspecified; B96.89 - Other specified bacterial agents as the cause of diseases classified elsewhere Plan: Augmentin 500mg BID x 7 days. #14 Medications: New amoxicillin-pot clavulanate 500-125 mg (Augmentin) 1 tab PO BID 14 tabs 0RF Coding Level of Care Code Est Pt Level 3 (63397) Diagnoses Acute bacterial sinusitis J01.90; B96.89 Time Spent (min) 20
[2024-07-11 15:24] VITALS: BP 126/88; PULSE 78; TEMP 36.7; O2SAT 98
== END 2024-07-11 15:47 | disposition home or self-care (01) ==
PROVIDERS: PCP Internal Medicine; Visit Provider Physician Assistant
DX: J01.90 Acute sinusitis, unspecified (principal); B96.89 Other specified bacterial agents as the cause of diseases classified elsewhere

== ENCOUNTER → 2024-07-11 15:00 | Outpatient (BNVA) | payer OTHER, SELFPAY | PROVIDERS: PCP Internal Medicine; Visit Provider Physician Assistant ==

== ENCOUNTER 2024-09-19 15:46 | Outpatient (AMB) | payer OTHER, SELFPAY ==
--- NOTE | 2024-09-19 15:47 | MHC.OFFWIV ---
Intake Vital Signs 09/19/24 15:52 Weight 217 lb BP 124/88 Blood Pressure Location Lt brachial Position Sitting Pulse 111 H Pulse Source Pulse Oximeter Temp 99.7 F Temp Source Oral Pulse Oximetry (%) 92 Oxygen Delivery Method Room Air Intake Visit Reasons: EP Headache, body aches, sore throat Patient Tobacco Use Status: Never used Tobacco Allergies ondansetron [From Zofran] Allergy (Verified 07/11/24 15:25) Unknown HPI HPI Comments History of Present Illness Details History - The patient is a 59-year-old female presenting with sore throat, pain with swallowing, headache, fatigue, body aches x1 day - The patient reports low-grade fevers and 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 - The patient denies additional typical upper respiratory symptoms. Physical Exam General: Cooperative, healthy appearing, comfortable and no acute distress Orientation/consciousness: Patient oriented x3 Limitations: No limitations Head: Normal to inspection Ears: Hearing grossly normal bilaterally, external ears normal and TM's normal bilaterally Nose: Normal external nose present, Normal nares present and No nasal discharge present Face and sinus: Normal facial exam Mouth: Normal oral and palatal mucosa present and moist mucous membranes Throat: Yes tonsils normal, Yes uvula midline. Posterior oropharynx erythema, no exudates noted Eyes: Appearance normal, both eyes and all related structures Neck: Normal visual inspection Respiratory: Normal respiratory effort, able to speak in complete sentences, no respiratory distress, not tachypneic, no tripod positioning and no use of accessory muscles Skin: No rashes or lesions noted Neuro: Patient oriented x3 Extremities: Normal to inspection and Yes no clubbing, cyanosis or edema [facility] Medical History History of sinus problem Depression Scoliosis Surgical History Previous back surgery Social History Alcohol intake: never Patient Tobacco Use Status: Never used Tobacco Review of Systems Const All systems reviewed & are unremarkable except as noted in HPI and below Physical Exam Vital Signs: Last Vital Signs Temp 99.7 F 09/19/24 15:52 Pulse 111 H 03/11/25 15:52 BP 124/88 09/19/24 15:52 Pulse Ox 92 09/19/24 15:52 Oxygen Delivery Method Room Air 09/19/24 15:52 Results AMB Rapid Strep AMB Rapid Strep Positive Last Edit by NICK Luna on 09/19/24 15:56 Assessment & Plan Assessment & Plan (1) Acute streptococcal pharyngitis: Code(s): J02.0 - Streptococcal pharyngitis Plan: Rapid strep positive in office. The patient, diagnosed with acute streptococcal pharyngitis, is prescribed a 10-day course of amoxicillin 500 mg every 12 hours. Instructions include beginning antibiotic therapy promptly, with a recommendation to avoid going to work until two days after starting treatment to ensure the decline of contagiousness. Rest and adequate hydration are strongly advised. [id number]-[id number] analgesics such as Tylenol or ibuprofen may be used for alleviating discomfort. No further diagnostic tests are warranted given the absence of other respiratory symptoms. Arrangements were made to send the prescription to [facility], and a medical work excuse was offered. Patient was informed and verbally consented to the use of an ambient scribe for clinic note documentation during this visit Medications: New amoxicillin 500 mg PO Q12H 20 tabs 0RF Discontinued amoxicillin-pot clavulanate 500-125 mg (Augmentin) Discontinued Reason: Patient no longer taking 1 tab PO BID 14 tabs 0RF Coding Level of Care Code New Pt Level 3 (92074) Diagnoses Acute streptococcal pharyngitis J02.0
[2024-09-19 15:52] VITALS: BP 124/88; PULSE 111; TEMP 37.6; O2SAT 92
--- OUTSIDE RECORDS SUMMARY | 2024-09-19 19:06 | XMS_ITS | Clinical Summary ---
Author Organization 175 [facility] Address [address] [place] [address] Phone Care Team Providers Care [employer] Back Feeder Name Role Phone Tiera Stein MD Primary Care Provider [phone] Allergies Active Allergy Reactions Criticality Noted Date Comments Doxycycline 02/16/2019 Ondansetron Hcl 09/05/2024 Drug interaction with Lexapro Medications buPROPion XL (WELLBUTRIN XL) 150 mg 24 hr tablet Take 1 tablet (150 mg total) by mouth 1 (one) time each day in the morning. Active escitalopram (LEXAPRO) 20 mg tablet Take 1 tablet (20 mg total) by mouth at bedtime. Active omeprazole (PriLOSEC) [address] capsule Take 1 capsule (20 mg total) by mouth 1 (one) time each day. 4 Active pregabalin (LYRICA) 150 mg capsule Take 2 capsules (300 mg total) by mouth 2 (two) times a day. Active semaglutide (Wegovy) 0.5 mg/0.5 mL injection pen Inject 0.5 mg under the skin every 7 (seven) days. 4 Active DICLOFENAC SODIUM ORAL Take 75 mg by mouth 2 (two) times a day. Active fexofenadine (JESSICA) 180 mg tablet Take 1 tablet (180 mg total) by mouth 1 (one) time each day if needed (allergies). 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 Anxiety 02/08/2017 Depression 02/08/2017 Encounters Date Type Department Care Team Description 09/05/2024 9:40 AM EST Office Visit Gastroenterology - [place] [address] [place] [phone] Shilpa Ramos PA Epigastric abdominal pain (Primary Dx) 07/19/2024 Telephone Internal Medicine - [place] [address] [phone] Tiera Stein MD [place] - Labs 07/11/2024 Telephone Internal Medicine [facility] 175 [facility] [address] [place] [phone] Tiera Stein MD Sinusitis from Last 3 Months Medical History Medical History Date Comments Anxiety 02/08/2017 DX:Anxiety Depression 02/08/2017 DX:Depression Esophageal reflux 04/11/2018 DX:Esophageal reflux 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 DX:Positive PPD Vitamin D deficiency 03/16/2018 DX:Vitamin D deficiency Social History Tobacco Use Types Packs/Day Years Used Date Smoking Tobacco: Never Smokeless Tobacco: Never Alcohol Use Standard Drinks/Week Comments Not Currently 0 (1 standard drink = 0.6 oz pur e alcohol) Comments Unknown Sex and Gender Information Value Date Recorded Sex Assigned at Not on file Legal Sex Female 6:06 AM EST Gender Identity Not on file Sexual Orientation Not on file Obstetrics History Last Filed Vital Signs Vital Sign Reading Time Taken Comments Blood Pressure 138/82 09/05/2024 9:49 AM EST Pulse 94 02/25/2024 9:07 AM EDT Temperature - - Respiratory Rate - - Oxygen Saturation - - Inhaled Oxygen Concentration - - Weight 98.9 kg (218 lb) 09/05/2024 9:49 AM EST Height 175.3 cm (5' 9 ) 09/05/2024 9:49 AM EST Body Mass Index 32.19 09/05/2024 9:49 AM EST Plan of Treatment Upcoming Encounters Date Type Department Care Team (Late st Contact Info) Description 12/05/2024 8:50 AM EDT Office Visit Gastroenterology - [place] [address] [place] [phone] Shilpa Ramos PA 175 [facility] [address] [place] [address] 02/26/2025 8:30 AM EDT Office Visit Internal Medicine - [place] [address] [place] [phone] Tiera Stein MD 175 [facility] [address] [place] [phone] Health Maintenance Due Date Last Done Comments Breast Cancer Screening 1967 DTaP,Tdap,and Td Vaccines (1 - Tdap) 1986 Hepatitis B Vaccines (1 of 3 - 19+ 3-dose series) 1986 Cervical Cancer Screening: P ap Smear 1988 Pneumococcal Vaccine: 50+ Years (1 of 1 - PCV) 2017 Zoster Vaccines (1 of 2) 2017 Depression Screening 06/20/2022 HIV Screening 06/20/2022 Hepatitis C Screening 06/20/2022 Social Influencers of Health Screening 06/20/2022 COVID-19 Vaccine (1 - 2023-2 5 season) 2024 Influenza Vaccine (#1) 2024 Colorectal Cancer Screening: Colonoscopy 08/30/2028 08/30/2023 Cholesterol Screening (Lipid Panel) 02/24/2029 02/25/2024, 02/25/2024 HIB Vaccines Aged Out No longer eligi ble based on patient's age to complete this topic HPV Vaccines Aged Out No longer eligi ble based on patient's age to complete this topic Hepatitis A Vaccines Aged Out No long er eligible based on patient's age to complete this topic IPV Vaccines Aged Out No longer eligi ble based on patient's age to complete this topic MMR Vaccines Aged Out No longer eligi ble based on patient's age to complete this topic Meningococcal ACWY Vaccine Aged Out N o longer eligible based on patient's age to complete this topic Meningococcal B Vacine Aged Out No lo nger eligible based on patient's age to complete this topic Pneumococcal Vaccine: Pediatrics (0 to 5 Years) and At-Risk Patients (6 to 64 Years) Aged Out No longer eligible b ased on patient's age to complete this topic RSV Immunization Patients Under 20 months Aged Out No longer eligible b ased on patient's age to complete this topic Varicella Vaccines Aged Out No longer eligible based on patient's age to complete this topic Procedures Procedure Name Priority Date/Time Associated Diagnosis Comments LIPID PANEL Routine 02/25/2024 HM COLONOSCOPY Routine 08/30/2023 from Last 3 Months or Most Recently Relevant to Health Maintenance Results * (ABNORMAL) Lipid panel (02/25/2024) LDL/HDL Ratio 3 0 - 4 Triglycerides 95 0 - 150 mg/dL Cholesterol 230(A) 0 - 200 mg/dL HDL 81 >=40 mg/dL LDL Cholesterol 130(A) 0 - 100 mg/dL Blood Venous blood specimen / Unknown Historical Provider MD LAB BLOOD ORDERABLES Holley l Result * Colonoscopy (08/30/2023) Colonoscopy no interpretation , abstracted Anatomical Region Laterality Modality Other Historical Provider HEALTH MAINTENANCE Final Result from Last 3 Months or Most Recently Relevant to Health Maintenance Insurance [employer] [facility] Care Teams [employer] Back Feeder Relationship Specialty Start Date End Date Tiera Stein MD [address] [phone] PCP - General Internal Medicine 08/02/24
--- OUTSIDE RECORDS SUMMARY | 2024-09-19 19:06 | XMS_ITS | Encounter Summary ---
Author Organization Address [address] [place] [address] Care Team Providers Care [employer] Name Role Phone Tiera Stein MD Primary Care Provider [phone] Reason for Referral * Imaging (Routine) - Pending Review Specialty Diagnoses / Procedures Referred By Contac t Referred To Contact Radiology Diagnoses Epigastric abdominal pain Procedures NM Gastric Emptying Study Shilpa Ramos PA [address] [address] Phone: tel: fax: [facility] [address] [place] [address] Phone: tel: Referral ID Status Reason Start Date Expiration Date V isits Requested Visits Authorized [id number] Pending Review 09/05/2024 09/05/2025 1 1 * Imaging (Routine) - Pending Review Specialty Diagnoses / Procedures Referred By Contac t Referred To Contact Radiology Diagnoses Epigastric abdominal pain Procedures XR Esophagram Shilpa Ramos PA [address] [address] Phone: tel: fax: [facility] CT Scan [address] [place] [address] Phone: tel: Referral ID Status Reason Start Date Expiration Date V isits Requested Visits Authorized [id number] Pending Review 09/05/2024 09/05/2025 1 1 Reason for Visit * Reason Comments Bloated GERD Encounter Details Date Type Department Care Team (Late st Contact Info) Description 09/05/2024 9:40 AM EST Office Visit Gastroenterology - [place] [address] [place] [phone] Shilpa Ramos PA [address] [place] [address] Epigastric abdominal pain (Primary Dx) Social History Tobacco Use Types Packs/Day Years Used Date Smoking Tobacco: Never Smokeless Tobacco: Never Alcohol Use Standard Drinks/Week Comments Not Currently 0 (1 standard drink = 0.6 oz pur e alcohol) Comments Unknown Sex and Gender Information Value Date Recorded Sex Assigned at Not on file Legal Sex Female 6:06 AM EST Gender Identity Not on file Sexual Orientation Not on file documented as of this encounter Last Filed Vital Signs Vital Sign Reading Time Taken Comments Blood Pressure 138/82 09/05/2024 9:49 AM EST Pulse - - Temperature - - Respiratory Rate - - Oxygen Saturation - - Inhaled Oxygen Concentration - - Weight 98.9 kg (218 lb) 09/05/2024 9:49 AM EST Height 175.3 cm (5' 9 ) 09/05/2024 9:49 AM EST Body Mass Index 32.19 09/05/2024 9:49 AM EST documented in this encounter Progress Notes * RYLAN Collier - 09/05/2024 9:40 AM EST CHIEF COMPLAINT: Chief Complaint Patient presents with Bloated GERD IDENTIFIER: Gypsy Moore is a 59 y.o. old female History of Present Illness The patient presents for evaluation of abdominal discomfort. She reports a sensation of food being lodged in her esophagus, particularly when consuming nuts or small sandwiches. This is occasionally accompanied by mild nausea, but not severe enough to warrant the use of Reglan. She experiences significant bloating and a sensation of water in her stomach, typically post- lunch. She describes a feeling similar to acid reflux, particularly after medication intake, and a sensation of trapped gas that does not alleviate with burping. She has not experienced any episodes of vomiting or hematochezia. She reports occasional urgency with bowel movements. She finds relief from her symptoms with omeprazole, noting increased gastric discomfort in its absence. Sheexpresses concern about potential dependence on omeprazole if the dosage is increased and prefers to maintain her current dosage until further diagnostic studies are conducted. She also reports prolonged digestion of food, leading her to adopt a liquid diet for lunch. Her morning food intake is minimal, primarily to facilitate medication administration. She has experienced a loss of appetite since the onset of the COVID-19 pandemic. She avoids fried, oily, greasy, and spicy foods, and does not consume coffee. She has been adhering to this dietary regimen for several years. 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 She works 5 days a week. She has received cortisone injections in her back for scoliosis, which were ineffective, and one in her hip. She has experienced weight gain following cortisone therapy, regaining 50 pounds that she had previously lost. She underwent an endoscopy and colonoscopy last year, which revealed gastritis without bleeding or ulcers, and a positive test for H. pylori. She was treated with abx for 2 weeks, which she found unpleasant due to a metallic taste. A subsequent breath test was negative. She has bursitis in both hips from an accident which has not resolved. She has been taking diclofenac for 3 years. She takes pregabalin 300 mg twice a day. ROS: GENERAL: No malaise, significant weight loss or fever HEENT: No changes in hearing or vision, nose bleeds or other nasal problems NECK: No lumps, goiter, pain or significant neck swelling RESPIRATORY: No cough, wheezing or shortness of breath CARDIOVASCULAR: No chest pain, leg swelling or palpitations GI: See HPI. MUSCULOSKELETAL: No joint pain or swelling, back pain, or muscle pain. 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 SOCIAL HISTORY: Social History Tobacco Use Smoking status: Never Smokeless tobacco: Never Substance Use Topics Alcohol use: Not Currently FAMILY HISTORY: No family history on file. MEDICATIONS DISCONTINUED/REORDERED: There are no discontinued medications. ACTIVE MEDICATIONS: Current Outpatient Medications Medication Sig Dispense Refill buPROPion XL (WELLBUTRIN XL) 150 mg 24 hr tablet Take 1 tablet (150 mg total) by mouth 1 (one) timeeach day in the morning. DICLOFENAC SODIUM ORAL Take 75 mg by mouth 2 (two) times a day. escitalopram (LEXAPRO) 20 mg tablet Take 1 tablet (20 mg total) by mouth at bedtime. omeprazole (PriLOSEC) [address] capsule Take 1 capsule (20 mg total) by mouth 1 (one) time each day. pregabalin (LYRICA) 150 mg capsule Take 2 capsules (300 mg total) by mouth 2 (two) times a day. fexofenadine (JESSICA) 180 mg tablet Take 1 tablet (180 mg total) by mouth 1 (one) time each day ifneeded (allergies). (Patient not taking: Reported on 09/05/2024) 30 tablet 5 semaglutide (Wegovy) 0.5 mg/0.5 mL injection pen Inject 0.5 mg under the skin every 7 (seven) days.(Patient not taking: Reported on 09/05/2024) No current facility-administered medications for this visit. ALLERGIES: Allergies Allergen Reactions Doxycycline Zofran [Ondansetron Hcl] Drug interaction with Lexapro PHYSICAL EXAM: Visit Vitals BP 138/82 (BP Location: Left arm, Patient Position: Sitting, BP Cuff Size: Adult) Ht 1.753 m (69 ) Wt 98.9 kg (218 lb) BMI 32.19 kg/m?? Smoking Status Never BSA 2.14 m?? APPEARANCE: Alert and in no acute distress MOUTH/THROAT: no erythema or exudates NECK: Neck supple, no adenopathy HEART: RRR with normal S1 and S2, no murmurs LUNG: clear to auscultation ABDOMEN: Bowel sounds normoactive, no bruits, soft, non-tender EXTREMITIES: Extremities warm and well perfused without clubbing, cyanosis, or edema NEURO: Awake, alert and oriented x 3 with symmetrical reflexes Physical Exam IMPRESSION: 1. Epigastric abdominal pain (Primary) - XR Esophagram; Future - NM Gastric Emptying Study; Future PLAN: Pleasant 59 years old female whose past medical history includes vitamin D deficiency, obesity, GERD, anxiety and depression, scoliosis, history of positive PPD, who has been complaining of epigastric abdominal discomfort, bloating, and globus sensation. Patient had endoscopy and colonoscopy in 08/2023, EGD showed gastritis, at the time biopsy was positive for H. pylori, patient was successfully treated as breath test was negative. And colonoscopy that showed grade 1 internal hemorrhoids. Due to history of colon polyps, pt should have a repeat colonoscopy in 4 years. Assessment & Plan 1. Abdominal discomfort. Her symptoms suggest a possible diagnosis of gastroparesis. The continuation of diclofenac may be contributing to her gastritis and abdominal pain. She has been advised to exercise caution with diclofenac due to its potential gastrointestinal side effects. Dietary modifications have been recommended, including smaller, more frequent meals, avoidance of red meat, and increased intake of chicken and cooked vegetables. A barium swallow and gastric emptying study will be ordered to further investigate her symptoms. She will temporarily discontinue Lyrica 2 days prior to these tests to prevent potential interference with the results. She will continue her current regimen of omeprazole 20 mg until the results of the aforementioned studies are available. Depending on the results of the barium swallow and gastric emptying study will decide on further steps. Total time of today's encounter is 36 minutes in preparing to see the patient, reviewing labs, diagnostic studies as well as other provider notes, documenting and charting, creating an HPI, performing a medically appropriate exam as well as counseling patient. There was documentation in EMR after visit. None of which time was spend performing separately billable procedures or ancillary services. I have obtained verbal consent from Gypsy Moore prior to the recording. I have advised Gypsy Moore that she may refuse the recording and require the recording to be turned off at any time during this encounter. Sylvester Collier Gastroenterology [facility] [address] [address] documented in this encounter Plan of Treatment Upcoming Encounters Date Type Department Care Team ([facility] st Contact Info) Description 12/05/2024 8:50 AM EDT Office Visit Gastroenterology - [address] [phone] Shilpa Ramos PA [address] [address] 02/26/2025 8:30 AM EDT Office Visit Internal Medicine - [place] [address] [phone] Tiera Stein MD [address] [phone] Scheduled Orders Name Type Priority Associated Diagnoses Orde r Schedule XR Esophagram Imaging Routine Epigastric abdominal pain Expected: 09/05/2024, Expires: 09/05/2025 NM Gastric Emptying Study Imaging Routine Epigastric abdominal pain Expected: 09/05/2024, Expires: 09/05/2025 documented as of this encounter Visit Diagnoses Diagnosis Epigastric abdominal pain- Primary Abdominal pain, epigastric documented in this encounter Care Teams [employer] Chef [employer] Owner Relationship Specialty Start Date End Date Tiera Stein MD [address] [phone] PCP - General Internal Medicine 08/02/24 documented as of this encounter
== END 2024-09-19 16:09 | disposition home or self-care (01) ==
PROVIDERS: PCP Internal Medicine; Visit Provider Physician Assistant
DX: J02.0 Streptococcal pharyngitis (principal); Z13.9 Encounter for screening, unspecified

== ENCOUNTER → 2024-09-19 15:46 | Outpatient (BNVA) | payer OTHER, SELFPAY | PROVIDERS: PCP Internal Medicine; Visit Provider Physician Assistant | DX: J02.0 Streptococcal pharyngitis (principal) | CPT/HCPCS: 87880 ==

== ENCOUNTER 2024-09-28 09:00 | Outpatient (RCR) | payer OTHER, SELFPAY | END 2024-09-28 09:56 | disposition home or self-care (01) | LOC: HO.PTCHIC 09:00 | PROVIDERS: PCP Internal Medicine; Visit Provider Physician Assistant | DX: M16.0 Bilateral primary osteoarthritis of hip (principal) | CPT/HCPCS: 97110; 97112; 97140; 97161 ==

== ENCOUNTER → 2024-11-13 07:30 | Outpatient (BNV) | payer OTHER, SELFPAY | PROVIDERS: PCP Internal Medicine; Visit Provider Internal Medicine | DX: Z12.31 Encounter for screening mammogram for malignant neoplasm of breast (principal) | CPT/HCPCS: 77063; 77067 ==

== ENCOUNTER 2024-11-13 07:32 | Outpatient (REF) | payer OTHER, SELFPAY ==
--- OUTSIDE RECORDS SUMMARY | 2024-11-13 07:35 | XMS_ITS | Clinical Summary ---
Author Organization 175 [facility] Address [address] [place] [address] Phone Care Team Providers Care Environmental Compliance Specialist Name Role Phone Tiera Stein MD Primary Care Provider [phone] Allergies Active Allergy Reactions Criticality Noted Date [...] by mouth 1 (one) time each day. 04/13/2024 Active pregabalin (LYRICA) 150 mg capsule Take 2 capsules (300 mg total) by mouth 2 (two) times a day. Active semaglutide (Wegovy) 0.5 mg/0.5 mL injection pen Inject 0.5 mg under the skin every 7 (seven) days. 02/25/2024 Active DICLOFENAC SODIUM ORAL Take 75 mg by mouth 2 (two) times a day. Active fexofenadine (JESSICA) 180 mg tablet Take 1 tablet (180 mg total) by mouth 1 (one) time each day if needed (allergies). 30 tablet 5 09/19/2024 09/20/19 26 Active Active Problems Problem Noted Date Diagnosed Date Helicobacter pylori gastritis 09/02/2023 Scoliosis 02/22/2023 Obesity (BMI 30-39.9) 09/15/2022 Esophageal reflux 04/11/2018 Vitamin D deficiency 03/16/2018 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 Anxiety 02/08/2017 Depression 02/08/2017 Encounters Date Type Department Care Team Description 09/26/2024 Telephone Gastroenterology [facility] [address] [place] [address] Shilpa Ramos PA Provider Call Back 09/05/2024 9:40 AM EST Office Visit Gastroenterology [facility] [address] [place] [phone] Shilpa Ramos PA Epigastric abdominal pain (Primary Dx) from Last 3 Months Medical History Medical [...] Information Value Date Recorded Sex Assigned at Female 09/26/2024 3:00 PM EDT Legal Sex Female 6:06 AM EST Gender Identity Female 09/26/2024 3:00 PM EDT Sexual Orientation Straight 09/26/2024 3: 00 PM EDT Obstetrics History Last Filed Vital Signs Vital [...] Care Team (Late st Contact Info) Description 11/24/2024 8:15 AM EDT Appointment [facility] Nuclear Medicine [address] [place] [phone] 11/27/2024 7:45 AM EDT Appointment [facility] Xray [address] [place] [phone] 12/05/2024 8:50 AM EDT Office Visit Gastroenterology - [place] 175 [facility] [address] [phone] Shilpa Ramos PA [address] [address] 02/26/2025 8:30 AM EDT Office Visit Internal Medicine - [place] [address] [phone] Tiera Stein MD [address] [phone] Health Maintenance Due Date Last Done Comments [...] Influencers of Health Screening 06/20/2022 COVID-19 Vaccine ( - 2023-2 5 season) 2024 Influenza Vaccine (Season Ended) 2025 Colorectal Cancer Screening: Colonoscopy 08/30/2028 08/30/2023 Cholesterol [...] age to complete this topic Meningococcal B Vaccine Aged Out No l onger eligible based on patient's age to complete [...] Associated Diagnosis Comments LIPID PANEL Routine 02/25/2024 COLONOSCOPY Routine 08/30/2023 from Last 3 Months or Most Recently Relevant to Health Maintenance Results * (ABNORMAL) Lipid panel (02/25/2024) LDL/HDL Ratio 3 0 - 4 Triglycerides 95 0 - 150 mg/dL Cholesterol 230(A) 0 - 200 mg/dL HDL 81 >=40 mg/dL LDL Cholesterol 130(A) 0 - 100 mg/dL Blood Venous blood specimen / Unknown us Historical Provider LAB BLOOD ORDERABLES Holley l Result * Colonoscopy (08/30/2023) Pathologist [facility] Colonoscopy no interpretation , abstracted Anatomical Region Laterality Modality Other us Historical Provider HEALTH MAINTENANCE Final Result from Last 3 Months or Most Recently Relevant to Health Maintenance Insurance [employer] [facility] Care Teams Environmental Compliance Specialist Relationship Specialty Start Date End Date Tiera Stein MD [address] [place] [phone] PCP - General Internal Medicine 08/02/24
== END 2024-11-13 07:33 | disposition home or self-care (01) ==
LOC: HO.MAMMO 07:32
PROVIDERS: PCP Internal Medicine; Visit Provider Internal Medicine
DX: Z12.31 Encounter for screening mammogram for malignant neoplasm of breast (principal)
CPT/HCPCS: 77063; 77067

== ENCOUNTER 2025-02-15 07:48 | Outpatient (REF) | payer OTHER, SELFPAY ==
--- OUTSIDE RECORDS SUMMARY | 2025-02-15 07:51 | XMS_ITS | Patient Health Record ---
Author [facility] Address [address] [place] [address] Care Team Providers Care Pharmacy Intake Technician Name Role Phone Emil GARCIA, [facility] Primary Care Provider Unavailab Chaz Bean Unavailable [phone] Allergies Allergen (clinical drug ingredient) Drug/Non Drug Allergy documented on EMR Reaction Allergy Type Onset Date Status General (uncoded) hard to wake up Allergy Active doxycycline Doxycycline Unknown Drug Allergy Act brandon Reason For Referral No Information Medications Medication SIG (Take, Route, Frequency, Duration) Notes Start Date End Date Status Chlorhexidine Gluconate 0.12 % (Prior Auth#:[id number]) Mouth/Throat; Duration: 15 Not-Taking Erythromycin 5 MG/GM (Prior Auth#:[id number]) Ophthalmic; Duration: 7 Not-Taking Fexofenadine HCl 180 MG (Prior Auth#:[id number]) Oral; Duration: 30 Not-Taking Biofreeze Active Fluconazole 150 MG (Prior Auth#:[id number]) Oral; Duration: 1 Not-Taking Motrin 200mg prn Active Fluticasone Propionate 50 MCG/ACT (Prior Auth#:[id number]) Nasal; Duration: 90 Not-Taking Vitamin D 50 MCG (1999) 1 capsule Ora lly Once a day; Duration: 30 day(s) Active Terconazole 80 MG (Prior Auth#:[id number]) Vaginal; Duration: 3 Not-Taking Voltaren Active traZODone HCl 50 MG (Prior Auth#:[id number]) Oral; Duration: 30 Not-Taking ASO Ankle/Foot Stablizing AFO As directed Wear Daily; Duration: as needed 02/26/2020 Active zzzCompression Stockings 20-30mm Hg . . .; Duration: . Active Amoxicillin-Pot Clavulanate 875-125 MG (Prior Auth#:[id number]) Oral; Duration: 7 Not-Taking Cephalexin 500 MG (Prior Auth#:[id number]) Oral; Duration: 10 Not-Taking Social History Tobacco Use: Social History Observation Description Date Details (start date - stop date) Never Smoker NA - NA Tobacco Use/Smoking Question Answer Notes Are you a: nonsmoker Additional Findings: Tobacco Non-User Current no n-smoker Alcohol Screen Question Answer Notes Did you have a drink containing alcohol in the p ast year? No Points 0 Interpretation Negative Tobacco use other than smoking: Question Answer Notes Are you an other tobacco user? No Plan Of Treatment No Information Insurance Providers Payer Name Payer Address Payer Phone Subscriber Number Group Number Insured Name Patient Relationship to Insured Coverage Start Date Coverage End Date Blue Benefits [address] [address] [place] [address] [id number] Gypsy Moore Self - patient is the insured 0 Medical (General) History Medical History History ICD Code Back pain Depression Headaches/Migraines Chicken pox Surgical History Surgery Date(Month/Year) lumbar 1977, 1978 Smalls Implantation
--- OUTSIDE RECORDS SUMMARY | 2025-02-15 07:51 | XMS_ITS | Encounter Summary ---
Author Organization [facility] Address [address] [place] [address] Care Team Providers Care Craft Artist Name Role Phone Tiera Stein MD Primary Care Provider [phone] Encounter Details Date Type Department Care Team (Late st Contact Info) Description 02/12/2025 Telephone Internal Medicine - [place] [address] [place] [phone] Tiera Stein MD [address] [facility] [address] [place] [phone] Social History Tobacco Use Types Packs/Day Years [...] Orientation Straight 09/26/2024 3: 00 PM EDT documented as of this encounter Progress Notes * Rambo Morton [place] - 02/12/2025 1:13 PM EDT Faxed * Lexie Raines - 02/12/2025 10:31 AM EDT Please fax lab order to [facility] [phone] FAX. documented in this encounter Plan of Treatment Upcoming Encounters Date Type Department Care Team (Late st Contact Info) Description 02/26/2025 8:30 AM EDT Office Visit Internal Medicine - [place] [address] [place] [phone] Tiera Stein MD [address] [place] [address] 03/08/2025 8:30 AM EDT Office Visit Gastroenterology - [place] [address] [place] [phone] Shilpa Ramos PA [address] [place] [phone] documented as of this encounter Visit Diagnoses Not on filedocumented in this encounter Care Teams Craft Artist Relationship Specialty Start Date End Date Tiera Stein MD [address] [place] [phone] PCP - General Internal Medicine 08/02/24 documented as of this encounter
[2025-02-15 10:17] LABS: Hematocrit 37.6 % (37.0-47.0); Hemoglobin 12.7 g/dl (12.0-16.0); Imm Gran Abs Auto 0.00 X10*3/uL (0.00-0.03); Imm Gran Pct Auto 0.0 % (0.0-0.4); Lymphocytes Absolute Auto 2.4 X10*3/uL (1.2-4.9); MANUAL DIFF FLAG SCAN; Mean Corpuscular HGB Conc 33.8 g/dl (31.0-35.0); Mean Corpuscular Hemoglobin 26.5 pg (27.0-33.0); Mean Corpuscular Volume 78.3 fL (80.0-98.0); NRBC Abs Auto 0.000 X10*3/uL (0.0-0.012); NRBC Pct Auto 0.0 /100WBC (0.0-0.2); Platelet Count 377 X10*3/uL (160-400); Red Blood Count 4.80 X10*6/uL (4.20-5.50); SCAN SMEAR FLAG 1; White Blood Count 3.5 X10*3/uL (4.8-10.8)
[2025-02-15 10:41] LABS: Hemoglobin A1C 129.7563 umol/L; Total Hemoglobin (HGBA1C) 3380.5094 umol/L
[2025-02-15 10:54] LABS: Alanine Aminotransferase 59 U/L (0-31); Albumin Level 4.0 g/dL (3.5-5.0); Alkaline Phosphatase 110 U/L (39-117); Anion Gap 12 (12-20); Aspartate Amino Transferase 54 U/L (5-31); Blood Urea Nitrogen 11 mg/dL (9-16); Calcium 8.6 mg/dL (8.4-10.2); Carbon Dioxide 27 mmol/L (22-29); Chloride 104 mmol/L (96-108); Cholesterol 204 mg/dL (<200); Estimated Glomerular Filt Rate > 60; HDL Cholesterol 35 mg/dL (>40); Potassium 4.2 mmol/L (3.3-5.1); Sodium 139 mmol/L (135-145); Total Protein 7.5 g/dL (6.5-8.0); Triglycerides 140 mg/dL (<150)
[2025-02-15 13:10] LABS: Reflex LDLD? No
== END 2025-02-15 07:49 | disposition home or self-care (01) ==
LOC: HO.HMGCLDS 07:48
PROVIDERS: PCP Internal Medicine; Visit Provider Internal Medicine
DX: Z00.00 Encounter for general adult medical examination without abnormal findings (principal); R53.83 Other fatigue; E55.9 Vitamin D deficiency, unspecified; Z13.1 Encounter for screening for diabetes mellitus
CPT/HCPCS: 36415; 80053; 80061; 82306; 83036; 85025

== ENCOUNTER 2025-02-28 07:49 | Outpatient (REF) | payer OTHER, SELFPAY ==
--- NOTE | ~2025-02-28 | XR_ITS ---
Exam: X-ray, bilateral knees.XR KNEE 3 VIEWS BILATERAL TECHNIQUE: Three views lower extremity joint, bilateral knees INDICATION: CHRONIC PAIN BOTH KNEES COMPARISON: None available. FINDINGS: RIGHT KNEE: Joint spaces are preserved. Intercondylar tubercles are mildly peaked. There is no joint effusion. There are no soft tissue calcifications. LEFT KNEE: Joint spaces are preserved. There is no joint effusion. There are no soft tissue calcifications. XR/XR Knee [place] 3V IMPRESSION: Right knee: Nonspecific minimal osteophyte formation involving intercondylar tubercles. Left knee: Unremarkable left knee. Electronically signed by: Surjit Larios MD 02/28/2025 10:38 AM EDT
--- OUTSIDE RECORDS SUMMARY | 2025-02-28 07:52 | XMS_ITS | Clinical Summary ---
Author Organization 175 [facility] Address 175 [place] [address] Phone Care Team Providers Care Perinatal Director Name Role Phone Tiera Stein MD Primary Care Provider [phone] Allergies Active Allergy Reactions Criticality Noted Date Comments Doxycycline 02/16/2019 Ondansetron Hcl 09/05/2024 Drug interaction with Lexapro Medications buPROPion XL (WELLBUTRIN XL) 150 mg 24 hr tablet Take 1 tablet (150 mg total) by mouth 1 (one) time each day in the morning. Active escitalopram (LEXAPRO) 20 mg tablet Take 1 tablet (20 mg total) by mouth at bedtime. Active pregabalin (LYRICA) 150 mg capsule Take 2 capsules (300 mg total) by mouth 2 (two) times a day. Active DICLOFENAC SODIUM ORAL Take 75 mg by mouth 2 (two) times a day. Active fexofenadine (JESSICA) 180 mg tablet Take 1 tablet (180 mg total) by mouth 1 (one) time each day if needed (allergies). 30 tablet 5 5 09/20/19 26 Active Additional Information Patient not taking.Reported on 02/26/2025 omeprazole (PriLOSEC) [address] capsule TAKE 1 CAPSULE BY MOUTH EVERY DAY 90 capsule 1 5 Active metoclopramide (REGLAN) 5 mg tablet Take 1 tablet (5 mg total) by mouth 2 (two) times daily before breakfast and lunch. 60 each 3 5 12/06/19 26 Active Additional Information Patient not taking.Reported on 02/26/2025 terbinafine (LamISIL) 250 mg tablet Take 1 tablet (250 mg total) by mouth 1 (one) time each day. 90 each 5 Active semaglutide (Wegovy) 0.5 mg/0.5 mL injection pen Inject 0.5 mg under the skin every 7 (seven) days. 4 02/27/20 25 Discontin ued(Expir ed) Active Problems Problem Noted Date Diagnosed Date Helicobacter pylori gastritis 09/02/2023 Scoliosis 02/22/2023 Obesity (BMI 30-39.9) 09/15/2022 Esophageal reflux 04/11/2018 Vitamin D deficiency 03/16/2018 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 Anxiety 02/08/2017 Depression 02/08/2017 Encounters Date Type Department Care Team Description 02/26/2025 8:30 AM EDT Office Visit Internal Medicine - [address] [phone] Tiera Stein MD Adult general medical examination (Primary Dx); Chronic pain of both knees; Onychomycosis; T wave inversion in EKG; Depression, unspecified depression type; Obesity (BMI 30-39.9) 02/12/2025 Telephone Internal Medicine - [place] [address] [phone] Tiera Stein MD 12/05/2024 8:50 AM EDT Office Visit Gastroenterology - [address] [phone] Shilpa Ramos PA Gastroparesis (Primary Dx); Gastroesophageal reflux disease, unspecified whether esophagitis present from Last 3 Months Medical History Medical [...] = 0.6 oz pur e alcohol) Comments No Sex and Gender Information Value Date Recorded Sex Assigned at Female 09/26/2024 3:00 PM EDT Legal Sex Female 6:06 AM EST Gender Identity Female 09/26/2024 3:00 PM EDT Sexual Orientation Straight 09/26/2024 3: 00 PM EDT Obstetrics History Last Filed Vital Signs Vital Sign Reading Time Taken Comments Blood Pressure 128/84 02/26/2025 8:21 AM EDT Pulse 90 02/26/2025 8:21 AM EDT Temperature 36.6 C (97.9 F) 02/26/2025 8:21 AM EDT Respiratory Rate 18 02/26/2025 8:21 AM EDT Oxygen Saturation 98% 02/26/2025 8:21 AM EDT Inhaled Oxygen Concentration - - Weight 101 kg (223 lb) 02/26/2025 8:21 AM EDT Height 175.3 cm (5' 9 ) 02/26/2025 8:21 AM EDT Body Mass Index 32.93 02/26/2025 8:21 AM EDT Plan of Treatment Upcoming Encounters Date Type Department Care Team (Late st Contact Info) Description 03/08/2025 8:30 AM EDT Office Visit Gastroenterology - [place] [address] [phone] Shilpa Ramos PA [address] [address] 09/03/2025 8:15 AM EST Office Visit Internal Medicine - [place] [address] [phone] Tiera Stein MD [address] [phone] Health Maintenance Due Date Last Done Comments Breast Cancer Screening 1967 DTaP,Tdap,and Td Vaccines (1 - Tdap) 1986 Hepatitis B Vaccines (1 of 3 - 19+ 3-dose series) 1986 Cervical Cancer Screening: P ap Smear 1988 Pneumococcal Vaccine: 50+ Years (1 of 1 - PCV) 2017 Zoster Vaccines (1 of 2) 2017 HIV Screening 06/20/2022 Hepatitis C Screening 06/20/2022 Social Influencers of Health Screening 06/20/2022 COVID-19 Vaccine (1 - 2023-2 5 season) 2024 Depression Screening 07/12/2024 Influenza Vaccine (#1) 2025 Colorectal Cancer Screening: Colonoscopy 08/30/2028 08/30/2023 [...] Procedure Name Priority Date/Time Associated Diagnosis Comments ECG INTERPRETATION AND REPORT ONLY Routine 02/26/2025 9:47 AM EDT T wave inversion in EKG Depression, unspecified depression type Obesity (BMI 30-39.9) LIPID PANEL Routine 02/25/2024 HM COLONOSCOPY Routine 08/30/2023 from Last 3 Months or Most Recently Relevant to Health Maintenance Results * ECG Interpretation and Report Only (02/26/2025 9:47 AM EDT) Narrative Tiera Stein MD - 02/26/2025 9:[address]-T changes, normal sinus rhythm Tiera Stein MD ECG ORDERABLES Final Result * (ABNORMAL) Lipid panel (02/25/2024) LDL/HDL Ratio 3 0 - 4 Triglycerides 95 0 - 150 mg/dL Cholesterol 230(A) 0 - 200 mg/dL HDL 81 >=40 mg/dL LDL Cholesterol 130(A) 0 - 100 mg/dL Blood Venous blood specimen / Unknown Historical Provider LAB BLOOD ORDERABLES Holley l Result * Hm Colonoscopy (08/30/2023) Colonoscopy no interpretation , abstracted Anatomical Region Laterality Modality Other Historical Provider HEALTH MAINTENANCE Final Result from Last 3 Months or Most Recently Relevant to Health Maintenance Insurance [facility] Care Teams Perinatal Director Relationship Specialty Start Date End Date Tiera Stein MD [address] [phone] PCP - General Internal Medicine 08/02/24
--- OUTSIDE RECORDS SUMMARY | 2025-02-28 07:52 | XMS_ITS | Patient Health Record ---
Author Organization [facility] Address [address] [place] [address] Care Team Providers Care Field Handyman Name Role Phone Emil GARCIA, [facility] Primary Care Provider Unavailab Chaz Bean Unavailable [phone] Allergies Allergen (clinical drug ingredient) Drug/Non Drug Allergy documented on EMR Reaction Allergy Type Onset Date Status General (uncoded) hard to wake up Allergy Active doxycycline Doxycycline Unknown Drug Allergy Act brandon Reason For Referral No Information Medications Medication SIG (Take, Route, Frequency, Duration) Notes Start Date End Date Status Chlorhexidine Gluconate 0.12 % (Prior Auth#:[id number]) Mouth/Throat; Duration: 15 Not-Taking Erythromycin 5 MG/GM (Prior Auth#:[id number]) Ophthalmic; Duration: 7 Not-Taking Fexofenadine HCl 180 MG (Prior Auth#:[id number]) Oral; Duration: 30 Not-Taking Biofreeze Active Fluconazole 150 MG (Prior Auth#:[id number]) Oral; Duration: 1 Not-Taking Motrin 200mg prn Active Fluticasone Propionate 50 MCG/ACT (Prior Auth#:[id number]) Nasal; Duration: 90 Not-Taking Vitamin D 50 MCG (1999) 1 capsule Ora lly Once a day; Duration: 30 day(s) Active Terconazole 80 MG (Prior Auth#:[id number]) Vaginal; Duration: 3 Not-Taking Voltaren Active traZODone HCl 50 MG (Prior Auth#:[id number]) Oral; Duration: 30 Not-Taking ASO Ankle/Foot Stablizing AFO As directed Wear Daily; Duration: as needed 02/26/2020 Active zzzCompression Stockings 20-30mm Hg . . .; Duration: . Active Amoxicillin-Pot Clavulanate 875-125 MG (Prior Auth#:[id number]) Oral; Duration: 7 Not-Taking Cephalexin 500 MG (Prior Auth#:[id number]) Oral; Duration: 10 Not-Taking Social History Tobacco [...] Coverage End Date Blue Benefits [address] [address] [place] [address] [id number] Gypsy Moore Self - patient is the insured 0 Medical (General) History Medical History History ICD Code Back pain Depression Headaches/Migraines Chicken pox Surgical History Surgery Date(Month/Year) lumbar 1977, 1978 Sm[facility] Implantation
== END 2025-02-28 07:50 | disposition home or self-care (01) ==
LOC: HO.HMGCX 07:49
PROVIDERS: PCP Internal Medicine; Visit Provider Internal Medicine
DX: M25.561 Pain in right knee (principal); M25.562 Pain in left knee; G89.29 Other chronic pain
CPT/HCPCS: 73562

== ENCOUNTER → 2025-02-28 08:59 | Outpatient (BNV) | payer OTHER, SELFPAY | PROVIDERS: PCP Internal Medicine; Visit Provider Radiology Diagnostic Radiology | DX: M25.761 Osteophyte, right knee (principal) | CPT/HCPCS: 73562 ==

== ENCOUNTER 2025-04-27 07:06 | Outpatient (REF) | payer OTHER, SELFPAY ==
--- OUTSIDE RECORDS SUMMARY | 2025-04-27 07:10 | XMS_ITS | Patient Health Record ---
Author [facility] Address [address] [place] [address] Care Team Providers Care Wood Stock Blank Handler Name Role Phone Emil GARCIA, [facility] Primary Care Provider Unavailab Chaz Bean Unavailable [phone] Allergies Allergen (clinical drug ingredient) Drug/Non Drug Allergy documented on EMR Reaction Allergy Type Onset Date Status General (uncoded) hard to wake up Allergy Active doxycycline Doxycycline Unknown Drug Allergy Act brandon Reason For Referral No Information Medications Medication SIG (Take, Route, Frequency, Duration) Notes Start Date End Date Status Chlorhexidine Gluconate 0.12 % (Prior Auth#:[id number]) Mouth/Throat; Duration: 15 Not-Taking Erythromycin 5 MG/GM (Prior Auth#:[id number]) Ophthalmic; Duration: 7 Not-Taking Fexofenadine HCl 180 MG (Prior Auth#:[id number]) Oral; Duration: 30 Not-Taking Biofreeze Active Fluconazole 150 MG (Prior Auth#:[id number]) Oral; Duration: 1 Not-Taking Motrin 200mg prn Active Fluticasone Propionate 50 MCG/ACT (Prior Auth#:[id number]) Nasal; Duration: 90 Not-Taking Vitamin D 50 MCG (1999) 1 capsule Ora lly Once a day; Duration: 30 day(s) Active Terconazole 80 MG (Prior Auth#:[id number]) Vaginal; Duration: 3 Not-Taking Voltaren Active traZODone HCl 50 MG (Prior Auth#:[id number]) Oral; Duration: 30 Not-Taking ASO Ankle/Foot Stablizing AFO As directed Wear Daily; Duration: as needed 02/26/2020 Active zzzCompression Stockings 20-30mm Hg . . .; Duration: . Active Amoxicillin-Pot Clavulanate 875-125 MG (Prior Auth#:[id number]) Oral; Duration: 7 Not-Taking Cephalexin 500 MG (Prior Auth#:[id number]) Oral; Duration: 10 Not-Taking Social History Tobacco [...] Coverage End Date Blue Benefits [address] [address] [place] [address] [id number] Gypsy Moore Self - patient is the insured 0 Medical (General) History Medical History History ICD Code Back pain Depression Headaches/Migraines Chicken pox Surgical History Surgery Date(Month/Year) lumbar 1977, 1978 Smalls Implantation
--- OUTSIDE RECORDS SUMMARY | 2025-04-27 07:10 | XMS_ITS | Clinical Summary ---
Author Organization 175 [facility] Address [address] [place] [address] Phone Care Team Providers Care Ammonia Still Operator Name Role Phone Tiera Stein MD Primary Care Provider [phone] Allergies Active Allergy Reactions Criticality Noted Date [...] 30 tablet 5 5 09/20/19 26 Active metoclopramide (REGLAN) 5 mg tablet Take 1 tablet (5 mg total) by mouth 2 (two) times daily before breakfast and lunch. 60 each 3 5 12/06/19 26 Active terbinafine (LamISIL) 250 mg tablet Take 1 tablet (250 mg total) by mouth 1 (one) time each day. 90 each 5 Active omega 0-fob-iew-fish oil (Fish OiL) 1,000 (120-180) mg capsule Take 1 capsule (1,000 mg total) by mouth 1 (one) time each day. Active esomeprazole (NexIUM) [address] capsule Take 1 capsule (40 mg total) by mouth 1 (one) time each day before breakfast. Do not open capsule. 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 Anxiety 02/08/2017 Depression 02/08/2017 Encounters Date Type Department Care Team Description 04/17/2025 Results Follow-Up Internal Medicine [address] [phone] Rambo Morton [place] 03/23/2025 8:15 AM EDT Ancillary Procedure [facility] [address] [facility] [address] [place] [address] T wave inversion in EKG 03/08/2025 8:30 AM EDT Office Visit Gastroenterology [address] [phone] Shilpa Ramos PA Gastroparesis (Primary Dx); Gastroesophageal reflux disease, unspecified whether esophagitis present; Epigastric abdominal pain; Abdominal bloating 03/08/2025 Telephone Gastroenterology [address] [phone] Shilap Ramos PA 02/26/2025 8:30 AM EDT Office Visit Internal Medicine [address] [phone] Tiera Stein MD Adult general medical examination (Primary Dx); Chronic pain of both knees; Onychomycosis; T wave inversion in EKG; Depression, unspecified depression type; Obesity (BMI 30-39.9) 02/12/2025 Telephone Internal Medicine [address] [place] [phone] Tiera Stein MD from Last 3 Months Medical History Medical [...] Sign Reading Time Taken Comments Blood Pressure 136/94 03/23/2025 8:08 AM EDT Pulse 90 02/26/2025 8:21 AM EDT Temperature 36.6 C (97.9 F) 02/26/2025 8:21 AM EDT Respiratory Rate 18 02/26/2025 8:21 AM EDT Oxygen Saturation 98% 02/26/2025 8:21 AM EDT Inhaled Oxygen Concentration - - Weight 104 kg (229 lb) 03/23/2025 8:08 AM EDT Height 175.3 cm (5' 9 ) 03/08/2025 8:40 AM EDT Body Mass Index 33.82 03/08/2025 8:40 AM EDT Plan of Treatment Upcoming Encounters Date Type Department Care Team (Late st Contact Info) Description 05/15/2025 1:[address] [facility] [address] [place] [phone] Naveed Bowen MD [address] [address] 09/03/2025 8:15 AM EST Office Visit Internal Medicine - [place] [address] [phone] Tiera Stein MD 175 [facility] [address] [place] [address] Health Maintenance Due Date Last Done Comments [...] 06/20/2022 Social Influencers of Health Screening 06/20/2022 Depression Screening 07/12/2024 COVID-19 Vaccine (1 - 2023-2 5 season) 2025 Influenza Vaccine (#1) 2025 Colorectal Cancer Screening: Colonoscopy 08/30/2028 08/30/2023 Cholesterol Screening (Lipid Panel) 02/24/2029 02/25/2024, 02/25/2024 RSV Immunization Adult Patients (1 - 1-dose 75+ series) 2042 HIB Vaccines Aged Out No longer eligi [...] on patient's age to complete this topic Goals Goal Patient Goal Type Associated Problems Recent Progress Patient-Stated? Author Autogenerat ed Goal Care Plan Autogenerated Problem No Ed Walsh Procedures Procedure Name Priority Date/Time Associated Diagnosis Comments STRESS TEST ONLY EXERCISE Routine 03/23/2025 8:43 AM EDT T wave inversion in EKG XR KNEE 3 VIEWS BILAT Routine 02/28/2025 Chronic pain of both knees ECG Routine 02/26/2025 4:24 PM EDT ECG INTERPRETATION AND REPORT ONLY Routine 02/26/2025 9:47 AM EDT T wave inversion in EKG Depression, unspecified depression type Obesity (BMI 30-39.9) LIPID PANEL Routine 02/25/2024 HM COLONOSCOPY Routine 08/30/2023 from Last 3 Months or Most Recently Relevant to Health Maintenance Results * Exercise stress test (03/23/2025 8:43 AM EDT) Target HR 139 bpm CV STRESS ONLY Baseline HR 100 bpm CV STRES S ONLY Baseline SBP 136 mmHg CV STRE SS ONLY Baseline DBP 94 mmHg CV STRE SS ONLY O2 sat rest 95 % CV STRES S ONLY Peak HR 153 bpm CV STRESS ONLY Peak SBP 158 mmHg CV STRESS ONLY Peak DBP 80 mmHg CV STRESS ONLY Estimated workload 6.5 METS CV STRESS ONLY Rate Pressure Product 24,174.0 mmHg*bpm CV STRESS ONLY Percent HR 94 % CV STRESS ONLY Exercise/injec tion duration (min) 4 min CV STRESS ONLY Exercise/injec tion duration (sec) 0 sec CV STRESS ONLY Anatomical Region Laterality Modality Cardiac Diagnost ic Narrative 03/28/2025 1:17 PM EDT No evidence of ischemia by ECG at this adequate level of stress. Exercise stress test was performed. Exercise capacity was below average. Normal blood pressure response. No significant chest pain or arrhythmias. Stress Findings A Tino protocol stress test was performed. Overall, the patient's exercise capacity was below average. Total stress time was 4 min and 0 sec. The test was stopped because the patient experienced fatigue and shortness of breath. Blood pressure demonstrated a normal response. Heart rate demonstrated a normal response. The patient reported shortness of breath during the stress test. ECG 59-year-old woman with history of exertional shortness of breath presents for exercise stress test. The ECG shows sinus tachycardia. Nonspecific T wave abnormality in inferior leads There were no arrhythmias during stress. There is no significant ST abnormalities during stress. There were no arrhythmias during recovery. There were no ST changes. The result of the stress ECG was negative for ischemia. Procedure Note Karis Montgomery NP / Agustin Mcdonough MD - 03/28/2025 No evidence of ischemia by ECG at this adequate level of stress. Exercise stress test was performed. Exercise capacity was belowaverage. Normal blood pressure response. No significant chest pain or arrhythmias. Tiera Stein MD CV STRESS PROCEDURES Final Res ult * XR Knee 3 Views bilat (02/28/2025) Anatomical Region Laterality Modality Lower Extremities, Knee Bilateral Radiogra phic Imaging Tiera Stein MD IMG XR PROCEDURES Final Result * ECG (02/26/2025 4:24 PM EDT) Tiera Stein MD ECG ORDERABLES Final Result * ECG Interpretation and Report Only (02/26/2025 9:47 AM EDT) Narrative Tiera Stein MD - 02/26/2025 9:[address]-T changes, normal sinus rhythm Tiera Stein MD ECG ORDERABLES Final Result * (ABNORMAL) Lipid panel (02/25/2024) Pathologist [facility] LDL/HDL Ratio 3 0 - 4 Triglycerides 95 0 - 150 mg/dL Cholesterol 230(A) 0 - 200 mg/dL HDL 81 >=40 mg/dL LDL Cholesterol 130(A) 0 - 100 mg/dL Blood Venous blood specimen / Unknown [facility] Madina GARCIA LAB BLOOD ORDERABLES Holley l Result * Colonoscopy (08/30/2023) Pathologist [facility] Colonoscopy no interpretation , abstracted Anatomical Region Laterality Modality Other us Historical Provider HEALTH MAINTENANCE Final Result from Last 3 Months or Most Recently Relevant to Health Maintenance Additional Health Concerns Active Problems Noted Date Diagnosed Date Autogenerated Problem 04/16/2025 Insurance [employer] [facility] Care Teams Ammonia Still Operator Relationship Specialty Start Date End Date Tiera Stein MD [address] [place] [phone] PCP - General Internal Medicine 08/02/24
--- OUTSIDE RECORDS SUMMARY | 2025-04-27 07:10 | XMS_ITS | Encounter Summary ---
Author Organization [facility] Address [address] [place] [address] Care Team Providers Care Early Intervention Specialist Name Role Phone Tiera Stein MD Primary Care Provider [phone] Encounter Details Date Type Department Care Team (Late Contact Info) Description 04/17/2025 Results Follow-Up Internal Medicine - [place] 175 [facility] [address] [place] [address] Rambo Morton MA Social History Tobacco Use Types Packs/Day Years [...] Progress Notes * Rambo Morton MA - 04/17/2025 11:27 AM EDT Sent results /letter via [employer] documented in this encounter Plan of Treatment Upcoming Encounters Date Type Department Care Team (Late Contact Info) Description 05/15/2025 1:00 PM EST Appointment [facility] [address] [place] [phone] Naveed Bowen MD [address] [address] 09/03/2025 8:15 AM EST Office Visit Internal Medicine - [place] [address] [phone] Tiera Stein MD [address] [phone] documented as of this encounter Goals Goal Patient Goal Type Associated Problems Recent Progress Patient-Stated? Author Autogenerat ed Goal Care Plan Autogenerated Problem No Ed Walsh documented as of this encounter Visit Diagnoses Not on filedocumented in this encounter Additional Health Concerns Active Problems Noted Date Diagnosed Date Autogenerated Problem 04/16/2025 documented as of this encounter Care Teams Early Intervention Specialist Relationship Specialty Start Date End Date Tiera Stein MD [address] [phone] PCP - General Internal Medicine 08/02/24 documented as of this encounter
[2025-04-27 12:30] LABS: Alanine Aminotransferase 75 U/L (0-31); Albumin Level 4.1 g/dL (3.5-5.0); Alkaline Phosphatase 122 U/L (39-117); Aspartate Amino Transferase 51 U/L (5-31); Total Protein 7.2 g/dL (6.5-8.0)
== END 2025-04-27 07:07 | disposition home or self-care (01) ==
LOC: HO.HMGCLDS 07:06
PROVIDERS: PCP Internal Medicine; Visit Provider Internal Medicine
DX: B35.1 Tinea unguium (principal)
CPT/HCPCS: 36415; 80076

== ENCOUNTER 2025-05-07 14:55 | Outpatient (REF) | payer OTHER, SELFPAY ==
[2025-05-08 11:06] LABS: Resp Syncy Virus RNA Qual PCR NEGATIVE (Negative); SARS COV2 PCR INHOUSE NEGATIVE (Negative)
--- OUTSIDE RECORDS SUMMARY | 2025-05-08 11:59 | XMS_ITS | Clinical Summary ---
Author Organization 175 [facility] Address [address] [place] [address] Phone Care Team Providers Care Lumber Sales Supervisor Name Role Phone Tiera Stein MD Primary Care Provider [phone] Allergies Active Allergy Reactions Criticality Noted Date [...] each day. 90 each 5 Active omega 9-lfn-zfs-fish oil (Fish OiL) 1,000 (120-180) mg capsule [...] Team Description 04/17/2025 Results Follow-Up Internal Medicine [address] [phone] Rambo Morton [place] 03/23/2025 8:15 AM EDT Ancillary Procedure [facility] 101 300 [facility] 101 [place] [address] T wave inversion in EKG 03/08/2025 8:30 AM EDT Office Visit Gastroenterology [address] [phone] Shilpa Ramos PA Gastroparesis (Primary Dx); Gastroesophageal reflux disease, unspecified whether esophagitis present; Epigastric abdominal pain; Abdominal bloating 03/08/2025 Telephone Gastroenterology [address] [phone] Shilpa Ramos PA 02/26/2025 8:30 AM EDT Office Visit Internal Medicine [address] [phone] Tiera Stein MD Adult general medical examination (Primary Dx); Chronic pain of both knees; Onychomycosis; T wave inversion in EKG; Depression, unspecified depression type; Obesity (BMI 30-39.9) 02/12/2025 Telephone Internal Medicine [address] [phone] Tiera Stein MD from Last 3 Months [...] Description 05/15/2025 1:00 PM EST Appointment [facility] Endoscopy [address] [place] [address] Naveed Bowen MD [address] [place] [phone] 09/03/2025 8:15 AM EST Office Visit Internal Medicine - [place] 175 [facility] 200 [place] [address] Tiera Stein MD [address] [place] [phone] 02/28/2026 8:30 AM EDT Office Visit Internal Medicine - [address] [place] [address] Tiera Stein MD [address] [place] [phone] Health Maintenance Due Date Last [...] Date Diagnosed Date Autogenerated Problem 04/16/[address] [place] [address] [employer] [facility] Care Teams Lumber Sales Supervisor Relationship Specialty Start Date End Date Tiera Stein MD [address] [phone] PCP - General Internal Medicine 08/02/24
--- OUTSIDE RECORDS SUMMARY | 2025-05-08 11:59 | XMS_ITS | Patient Health Record ---
[facility] Address [address] [place] [address] Care Team Providers Care Nurse Practical Name Role Phone Emil GARCIA, [facility] Primary Care Provider Unavailab Chaz Bean Unavailable [phone] Allergies Allergen (clinical drug ingredient) Drug/Non Drug Allergy documented on EMR Reaction Allergy Type Onset Date Status General (uncoded) hard to wake up Allergy Active doxycycline Doxycycline Unknown Drug Allergy Act brandon Reason For Referral No Information Medications Medication SIG (Take, Route, Frequency, Duration) Notes Start Date End Date Status Chlorhexidine Gluconate 0.12 % (Prior Auth#:[id number]) Mouth/Throat; Duration: 15 Not-Taking Erythromycin 5 MG/GM (Prior Auth#:[id number]) Ophthalmic; Duration: 7 Not-Taking Fexofenadine HCl 180 MG (Prior Auth#:[id number]) Oral; Duration: 30 Not-Taking Biofreeze Active Fluconazole 150 MG (Prior Auth#:[id number]) Oral; Duration: 1 Not-Taking Motrin 200mg prn Active Fluticasone Propionate 50 MCG/ACT (Prior Auth#:[id number]) Nasal; Duration: 90 Not-Taking Vitamin D 50 MCG (1999) 1 capsule Ora lly Once a day; Duration: 30 day(s) Active Terconazole 80 MG (Prior Auth#:[id number]) Vaginal; Duration: 3 Not-Taking Voltaren Active traZODone HCl 50 MG (Prior Auth#:[id number]) Oral; Duration: 30 Not-Taking ASO Ankle/Foot Stablizing AFO As directed Wear Daily; Duration: as needed 02/26/2020 Active zzzCompression Stockings 20-30mm Hg . . .; Duration: . Active Amoxicillin-Pot Clavulanate 875-125 MG (Prior Auth#:[id number]) Oral; Duration: 7 Not-Taking Cephalexin 500 MG (Prior Auth#:[id number]) Oral; Duration: 10 Not-Taking Social History Tobacco [...] Coverage End Date Blue Benefits [address] [address] [place] [address] [id number] Gypsy Moore Self - patient is the insured 0 Medical (General) History Medical History History ICD Code Back pain Depression Headaches/Migraines Chicken pox Surgical History Surgery Date(Month/Year) lumbar 1977, 1978 Smalls Implantation
--- OUTSIDE RECORDS SUMMARY | 2025-05-08 11:59 | XMS_ITS | Encounter Summary ---
Author Organization [facility] Address [address] [place] [address] Care Team Providers Care General Practice Name Role Phone Tiera Stein MD Primary Care Provider [phone] Encounter Details Date Type Department Care Team (Late Contact Info) Description 04/17/2025 Results Follow-Up Internal Medicine - [place] 175 [facility] [address] [place] [phone] Rambo Morton [place] Social History Tobacco Use [...] 11:27 AM EDT Sent results /letter via TalkBin documented in this encounter Plan of Treatment Upcoming Encounters Date Type Department Care Team (Late Contact Info) Description 05/15/2025 1:00 PM EST Appointment Endoscopy [address] [place] [phone] Naveed Bowen MD [address] [place] [phone] 09/03/2025 8:15 AM EST Office Visit Internal [facility] [address] [phone] Tiera Stein MD [address] [place] [phone] 02/28/2026 8:30 AM EDT Office Visit [facility] [address] [phone] Tiera Stein MD [address] [place] [phone] documented as of this encounter Goals Goal Patient Goal Type Associated Problems Recent Progress Patient-Stated? Author Autogenerat ed Goal Care Plan Autogenerated Problem Ed Correa documented as of this encounter Visit Diagnoses Not on filedocumented in this encounter Additional Health Concerns Active Problems Noted Date Diagnosed Date Autogenerated Problem 04/16/2025 documented as of this encounter Care Teams General Practice Relationship Specialty Start Date End Date Tiera Stein MD [address] [phone] PCP - General Internal Medicine 08/02/24 documented as of this encounter
== END 2025-05-07 14:56 | disposition home or self-care (01) ==
LOC: HO.LNP 14:55
PROVIDERS: PCP Internal Medicine; Visit Provider Physician Assistant Medical
DX: J01.01 Acute recurrent maxillary sinusitis (principal); R09.89 Other specified symptoms and signs involving the circulatory and respiratory systems; R51.9 Headache, unspecified; R09.81 Nasal congestion
CPT/HCPCS: 87637

== ENCOUNTER 2025-05-07 14:55 | Outpatient (AMB) | payer OTHER, SELFPAY ==
[2025-05-07 15:53] VITALS: BP 118/86; PULSE 91; TEMP 36.7; O2SAT 95; BMI 32.0
--- NOTE | 2025-05-07 15:53 | AM.OFFWIN_ITS ---
Intake Vital Signs 05/07/25 15:53 Height 5 ft 9 in Weight 217 lb BMI 32.0 BP 118/86 Blood Pressure Location Rt brachial Position Sitting Pulse 91 Pulse Source Pulse Oximeter Temp 98.0 F Temp Source Oral Pulse Oximetry (%) 95 Oxygen Delivery Method Room Air Intake Visit Reasons: EP Sinus infection Patient Tobacco Use Status: Never used Tobacco Allergies ondansetron (From Zofran) Adverse Reaction (Unknown, Verified 05/07/25 16:01) interacts with lexapro Do you need a note to return to daycare/school/sports/work: No HPI HPI Comments History of Present Illness Details History of Present Illness - The patient is a 59-year-old female pr esenting with symptoms of sinus pressure, congestion, ear fullness and headache. - Symptoms began this morning, with no f ever reported. - She has a history of chronic sinusitis , managed with antibiotics and Flonase. - The patient uses Cris for allergies , taken this morning. 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 - She denies CP, SOB, abd pain, or n/v/d . Physical Exam General: Cooperative, healthy appearing, comfortable, no acute distress and well developed Head: Normal to inspection Ears: Hearing grossly normal bilaterally. No tragus or mastoid tenderness noted. Auditory canals clear bilaterally. TM's normal, not bulging. No fluid noted. Nose: Normal external nose present. Moist mucosa. Turbinates normal bilaterally, not boggy. Face and sinus: Tenderness to palpation of the frontal and maxillary sinuses bilaterally. Neck: Normal visual inspection and Yes full ROM. No lymphadenopathy noted. Respiratory: Normal respiratory effort and able to speak in complete sentences. Clear to auscultation bilaterally Cardiovascular: Regular rate and rhythm. Normal S1 and S2 GI: Normal to inspection. Soft to palpation and nontender, nondistended. No guarding noted. Skin: No rashes or lesions noted COUNTS INCLUDE 234 BEDS AT THE [facility] Medical History History of sinus problem Depression Scoliosis Surgical History Previous back surgery Social History Alcohol intake: never Patient Tobacco Use Status: Never used Tobacco Review of Systems Const All systems reviewed & are unremarkable except as noted in HPI and below Physical Exam Vital Signs: Last Vital Signs Temp 98.0 F 05/07/25 15:53 Pulse 91 05/07/25 15:53 BP 118/86 05/07/25 15:53 Pulse Ox 95 05/07/25 15:53 Oxygen Delivery Method Room Air 05/07/25 15:53 BMI result Body Mass Index 32.0 Assessment & Plan Assessment & Plan (1) Sinusitis, acute: Code(s): J01.90 - Acute sinusitis, unspecified Qualifiers: Sinusitis location: maxillary Recurrence: recurrent Qualified Code(s): J01.01 - Acute recurrent maxillary sinusitis Plan Most likely sinusitis plan - tylenol or motrin as needed - start augmentin BID for 7 days - will order a resp panel today - if positive she can stop the antibiotics - follow up with PCP Orders: Orders SARS-CoV2/FLU/RSV Today R09.89 - Other specified symptoms and signs involving the circulatory and respiratory systems Medications: New amoxicillin-pot clavulanate 875-125 mg 1 tab PO Q12H 14 tabs 0RF Coding Level of Care Code Est Pt Level 3 (46455) Diagnoses Acute recurrent maxillary sinusitis J01.01 Sinusitis location: maxillary Recurrence: recurrent
--- OUTSIDE RECORDS SUMMARY | 2025-05-07 18:21 | XMS_ITS | Patient Health Record ---
Author Organization [facility] Address [address] [place] [address] Care Team Providers Care Drag Out Worker Name Role Phone Emil GARCIA, [facility] Primary Care Provider Unavailab Chaz Bean Unavailable [phone] Allergies Allergen (clinical drug ingredient) Drug/Non Drug Allergy documented on EMR Reaction Allergy Type Onset Date Status General (uncoded) hard to wake up Allergy Active doxycycline Doxycycline Unknown Drug Allergy Act brandon Reason For Referral No Information Medications Medication SIG (Take, Route, Frequency, Duration) Notes Start Date End Date Status Chlorhexidine Gluconate 0.12 % (Prior Auth#:[id number]) Mouth/Throat; Duration: 15 Not-Taking Erythromycin 5 MG/GM (Prior Auth#:[id number]) Ophthalmic; Duration: 7 Not-Taking Fexofenadine HCl 180 MG (Prior Auth#:[id number]) Oral; Duration: 30 Not-Taking Biofreeze Active Fluconazole 150 MG (Prior Auth#:[id number]) Oral; Duration: 1 Not-Taking Motrin 200mg prn Active Fluticasone Propionate 50 MCG/ACT (Prior Auth#:[id number]) Nasal; Duration: 90 Not-Taking Vitamin D 50 MCG (1999) 1 capsule Ora lly Once a day; Duration: 30 day(s) Active Terconazole 80 MG (Prior Auth#:[id number]) Vaginal; Duration: 3 Not-Taking Voltaren Active traZODone HCl 50 MG (Prior Auth#:[id number]) Oral; Duration: 30 Not-Taking ASO Ankle/Foot Stablizing AFO As directed Wear Daily; Duration: as needed 02/26/2020 Active zzzCompression Stockings 20-30mm Hg . . .; Duration: . Active Amoxicillin-Pot Clavulanate 875-125 MG (Prior Auth#:[id number]) Oral; Duration: 7 Not-Taking Cephalexin 500 MG (Prior Auth#:[id number]) Oral; Duration: 10 Not-Taking Social History Tobacco [...] Coverage End Date Blue Benefits [address] [address] [place] [address] [id number] Gypsy Moore Self - patient is the insured 0 Medical (General) History Medical History History ICD Code Back pain Depression Headaches/Migraines Chicken pox Surgical History Surgery Date(Month/Year) lumbar 1977, 1978 Smalls Implantation
--- OUTSIDE RECORDS SUMMARY | 2025-05-07 18:21 | XMS_ITS | Encounter Summary ---
Author Organization [facility] Address [address] [place] [address] Care Team Providers Care Orthopedic Physician Name Role Phone Tiera Stein MD Primary Care Provider [phone] Encounter Details Date Type Department Care Team (Late Contact Info) Description 04/17/2025 Results Follow-Up Internal Medicine - [place] 175 [facility] [address] [place] [phone] Rambo Morton [place] Social History Tobacco Use [...] 11:27 AM EDT Sent results /letter via Personalis documented in this encounter Plan of Treatment Upcoming Encounters Date Type Department Care Team (Late Contact Info) Description 05/15/2025 1:00 PM EST Appointment [facility] Endoscopy [address] [place] [phone] Naveed Bowen MD [address] [place] [phone] 09/03/2025 8:15 AM EST Office Visit Internal Medicine [facility] [address] [phone] Tiera Stein MD [address] [place] [phone] 02/28/2026 8:30 AM EDT Office Visit Internal [facility] [address] [phone] Tiera Stein MD [address] [place] [phone] documented as of this encounter Goals Goal Patient Goal Type Associated Problems Recent Progress Patient-Stated? Author Autogenerat ed Goal Care Plan Autogenerated Problem No Ed Walsh documented as of this encounter Visit Diagnoses Not on filedocumented in this encounter Additional Health Concerns Active Problems Noted Date Diagnosed Date Autogenerated Problem 04/16/2025 documented as of this encounter Care Teams Orthopedic Physician Relationship Specialty Start Date End Date Tiera Stein MD [address] [phone] PCP - General Internal Medicine 08/02/24 documented as of this encounter
--- OUTSIDE RECORDS SUMMARY | 2025-05-07 18:21 | XMS_ITS | Clinical Summary ---
Author Organization 175 [facility] Address [address] [place] [address] Phone Care Team Providers Care Tunnel Drier Operator Name Role Phone Tiera Stein MD Primary Care Provider [phone] Allergies Active Allergy Reactions Criticality Noted Date [...] each day. 90 each 5 Active omega 4-arn-yjs-fish oil (Fish OiL) 1,000 (120-180) mg capsule [...] Team Description 04/17/2025 Results Follow-Up Internal Medicine [address] [phone] Rambo Morton [place] 03/23/2025 8:15 AM EDT Ancillary Procedure [facility] 101 [address] [facility] 101 [place] [address] T wave inversion in EKG 03/08/2025 8:30 AM EDT Office Visit Gastroenterology [address] [phone] Shilap Ramos PA Gastroparesis (Primary Dx); Gastroesophageal reflux disease, unspecified whether esophagitis present; Epigastric abdominal pain; Abdominal bloating 03/08/2025 Telephone Gastroenterology [address] [phone] Shilpa Ramos PA 02/26/2025 8:30 AM EDT Office Visit Internal Medicine [address] [phone] Tiera Stein MD Adult general medical examination (Primary Dx); Chronic pain of both knees; Onychomycosis; T wave inversion in EKG; Depression, unspecified depression type; Obesity (BMI 30-39.9) 02/12/2025 Telephone Internal Medicine [address] [place] [phone] Tiera Stein MD from Last 3 Months [...] Info) Description 05/15/2025 1:00 PM EST Appointment [facility] Endoscopy [address] [place] [address] Naveed Bowen MD [address] [place] [phone] 09/03/2025 8:15 AM EST Office Visit Internal Medicine - [place] 175 [facility] 200 [place] [address] Tiera Stein MD [address] [place] [phone] 02/28/2026 8:30 AM EDT Office Visit Internal Medicine - [address] [place] [address] Tiera Stein MD [address] [place] [phone] Health Maintenance Due Date Last Done Comments [...] EDT Nonspecific ST-T changes, normal sinus rhythm Result [facility] us Tiera Stein MD ECG ORDERABLES Final Result [...] Date Diagnosed Date Autogenerated Problem 04/16/2025 Insurance [employer] [facility] Care Teams Tunnel Drier Operator Relationship Specialty Start Date End Date Tiera Stein MD [address] [phone] PCP - General Internal Medicine 08/02/24
== END 2025-05-07 16:28 | disposition home or self-care (01) ==
PROVIDERS: PCP Internal Medicine; Visit Provider Physician Assistant Medical
DX: J01.01 Acute recurrent maxillary sinusitis (principal)